=== PATIENT | male | born 1985 | race Caucasian/White ===

== ENCOUNTER → 2017-02-11 | Outpatient (CLI) | payer OTHER ==
[2017-02-11 10:55] LABS: CHCM 33.8; HCT 43.4 % (39.0-53.0); HDW 2.51; HGB 14.9 gm/dL (13.0-17.5); MCH 29.6 pg (25.0-35.0); MCHC 34.4 g/dL (31.0-37.0); Mean Platelet Volume 7.1; RBC 5.04 m/uL (4.30-5.90); RDW 13.1 % (11.5-15.5); WBC 8.5 k/uL (3.8-10.6)
[2017-02-11 11:18] LABS: ALT 109 U/L (21-72); AST 53 U/L (17-59); Alkaline Phosphatase 76 U/L (38-126); Anion Gap 11 mmol/L; Blood Urea Nitrogen 12 mg/dL (9-20); Calcium 9.6 mg/dL (8.4-10.2); Carbon Dioxide 26 mmol/L (22-30); Chloride 107 mmol/L (98-107); Cholesterol 194 mg/dL (<200); Glucose 99 mg/dL (74-99); HDL Cholesterol 36 mg/dL (40-60); Non-African American GFR(MDRD) >60 (>60 ml/min/1.73 sqM); Sodium 144 mmol/L (137-145); Total Bilirubin 0.9 mg/dL (0.2-1.3); Total Protein 7.6 g/dL (6.3-8.2)
--- NOTE | 2017-02-11 14:21 | XR ---
EXAMINATION TYPE: XR chest 2V DATE OF EXAM: 02/11/2017 COMPARISON: Prior chest x-ray the sixth 2015 HISTORY: COPD and shortness of breath, asthma, cough TECHNIQUE: Frontal and lateral views of the chest are obtained. FINDINGS: Multiple nodular densities again noted in the left lower lobe. No pneumothorax or pleural effusion. Cardiomediastinal silhouette, pulmonary vascularity and alta are stable. IMPRESSION: Old granulomatous disease
== END | disposition home or self-care (01) ==
LOC: LABWHC1 10:15
PROVIDERS: ATTEND Internal Medicine
DX: Z00.00 Encounter for general adult medical examination without abnormal findings (principal); I11.9 Hypertensive heart disease without heart failure; J44.9 Chronic obstructive pulmonary disease, unspecified; E66.1 Drug-induced obesity; E78.2 Mixed hyperlipidemia
CPT/HCPCS: 36415; 71020; 80053; 80061; 84439; 84443; 85027

== ENCOUNTER 2017-11-23 10:33 | Emergency (ER) | payer OTHER ==
[2017-11-23 10:42] VITALS: RESP 18
[2017-11-23] MEDS ORDERED: ACETAMINOPHEN TAB 500 MG TAB PO STA (11:28)
[2017-11-23] MEDS ORDERED: IBUPROFEN 600 MG TAB PO STA (11:28)
--- NOTE | 2017-11-23 11:31 | ED ---
General Adult HPI - General Chief complaint: Upper Respiratory Infection Stated complaint: Chest Congestion Time Seen by Provider: 11/23/17 10:40 Source: patient, RN notes reviewed Mode of arrival: ambulatory Limitations: no limitations - History of Present Illness Initial comments: This is a 32-year-old male who presents emergency Department complaining of a 2 day history of coughing up sputum and having body aches. Patient states she did get a flu shot this year. Patient states he is not a smoker. Patient states the symptoms don't seem to be subsiding. Patient denies taking any medicine for his aches or fever. Patient denies any chest pain difficulty breathing or shortness of breath. Patient denies any headache patient denies numbness weakness. Patient denies lightheadedness dizziness or near syncopal episode. - Related Data Home Medications Medication Instructions Recorded Confirmed Albuterol Inhaler [Ventolin 2 puff INHALATION RT-Q4H PRN 11/18/13 11/23/17 Inhaler] Enalapril [Vasotec] 5 mg PO DAILY 11/18/13 11/23/17 ALPRAZolam [Xanax] 0.5 mg PO BID PRN 02/24/14 11/23/17 Ranitidine HCl [Zantac] 150 mg PO QAM 02/24/14 11/23/17 Atenolol [Atenolol] 25 mg PO DAILY 11/12/15 11/23/17 Ipratropium-Albuterol Nebulize 3 ml INHALATION RT-Q4H PRN 11/12/15 11/23/17 [Duoneb 0.5 mg-3 mg/3 ml Soln] Montelukast [Singulair] 10 mg PO HS 11/12/15 11/23/17 Previous Rx's Medication Instructions Recorded Ibuprofen [Motrin] 600 mg PO Q6HR PRN #40 day 02/24/14 Ketorolac [Toradol] 10 mg PO Q6HR #15 tab 12/29/15 traMADol HCl [Ultram] 50 mg PO Q6H PRN #20 tab 12/29/15 Ibuprofen [Motrin] 600 mg PO Q6HR PRN #30 tab 04/16/16 Azithromycin [Zithromax Tri-Carlos] 500 mg PO DAILY #3 tab 11/23/17 Allergies Allergy/AdvReac Type Severity Reaction Status Date / Time No Known Allergies Allergy Verified 11/23/17 10:42 Review of Systems ROS Statement: Those systems with pertinent positive or pertinent negative responses have been documented in the HPI. ROS Other: All systems not noted in ROS Statement are negative. Past Medical History Past Medical History: Asthma, Hypertension Additional Past Medical History / Comment(s): kidney stones, MIGRAINES History of Any Multi-Drug Resistant Organisms: MRSA Date of last positivie culture/infection: 11/12/15 MDRO Source:: LEFT FOOT Past Surgical History: No Surgical Hx Reported Past Psychological History: Anxiety Smoking Status: Former smoker Past Alcohol Use History: Occasional Past Drug Use History: Marijuana General Exam - General Exam Comments Initial Comments: GENERAL: Patient is well-developed and well-nourished. Patient is nontoxic and well- hydrated and is in mild distress. ENT: Neck is soft and supple. No significant lymphadenopathy is noted. Oropharynx is clear. Moist mucous membranes. Neck has full range of motion without eliciting any pain. EYES: The sclera were anicteric and conjunctiva were pink and moist. Extraocular movements were intact and pupils were equal round and reactive to light. Eyelids were unremarkable. PULMONARY: Unlabored respirations. Good breath sounds bilaterally. No audible rales rhonchi or wheezing was noted. CARDIOVASCULAR: There is a regular rate and rhythm without any murmurs gallops or rubs. ABDOMEN: Soft and nontender with normal bowel sounds. No palpable organomegaly was noted. There is no palpable pulsatile mass. SKIN: Skin is clear with no lesions or rashes and otherwise unremarkable. NEUROLOGIC: Patient is alert and oriented x3. Cranial nerves II through XII are grossly intact. Motor and sensory are also intact. Normal speech, volume and content. Symmetrical smile. MUSCULOSKELETAL: Normal extremities with adequate strength and full range of motion. LYMPHATICS: No significant lymphadenopathy is noted PSYCHIATRIC: Normal psychiatric evaluation. Normal interpersonal interactions appears functionally intact in deals appropriately with others. No signs of depression. No signs of anxiety. Limitations: no limitations Course Vital Signs 11/23/17 10:41 Temperature 100.0 F H Pulse Rate 99 Respiratory 18 Rate Blood Pressure 207/87 O2 Sat by Pulse 97 Oximetry Medical Decision Making - Medical Decision Making Chest x-ray shows a right lower lobe pneumonia. - Lab Data Lab Results 11/23/17 Range/Units 11:48 Influ A (H1N1/09) PCR Not detected (Not Detectd) Influenza A RNA (PCR) Not Detected (Not Detectd) Influenza B (RT-PCR) Not Detected (Not Detectd) Disposition Clinical Impression: Pneumonia Disposition: HOME SELF-CARE Instructions: Community Acquired Pneumonia (ED) Prescriptions: Azithromycin [Zithromax Tri-Carlos] 500 mg PO DAILY #3 tab Is patient prescribed a controlled substance at d/c from ED?: No Referrals: Nolan Umaña MD [Primary Care Provider] - 1-2 days Time of Disposition: 12:50
[2017-11-23] MEDS ORDERED: cefTRIAXone 1,000 MG VIAL (IM USE) IM ONE (11:50)
[2017-11-23] MEDS ORDERED: IBUPROFEN 600 MG TAB PO ONE (11:50)
[2017-11-23] MEDS ORDERED: ACETAMINOPHEN TAB 500 MG TAB ONE (11:50)
[2017-11-23] MEDS ORDERED: AZITHROMYCIN 500 MG TAB ONE (11:50)
--- NOTE | 2017-11-23 12:47 | XR ---
EXAMINATION TYPE: XR chest 2V DATE OF EXAM: 11/23/2017 COMPARISON: 02/11/2017 HISTORY: Chest congestion and chest pain TECHNIQUE: Frontal and lateral views of the chest are obtained. FINDINGS: There is a new right lower lobe opacity. Old granulomatous changes again seen on the left i n the perihilar region. Remainder the lungs are clear. Cardia mediastinal silhouette is within normal limits. Osseous structures are intact. IMPRESSION: New right basilar opacity suspicious for pneumonia.
[2017-11-23] MEDS ORDERED: AZITHROMYCIN 500 MG TAB PO STA (12:49)
[2017-11-23] MEDS ORDERED: cefTRIAXone 1,000 MG VIAL (IM USE) IM STA (12:49)
[2017-11-23 13:18] VITALS: BP 154/93; PULSE 83; TEMP 98.1
== END 2017-11-23 13:18 | disposition home or self-care (01) ==
LOC: EC 10:33
DX: J18.9 Pneumonia, unspecified organism (principal); J45.909 Unspecified asthma, uncomplicated; I10 Essential (primary) hypertension; F41.9 Anxiety disorder, unspecified; Z86.14 Personal history of Methicillin resistant Staphylococcus aureus infection; Z87.891 Personal history of nicotine dependence; Z79.899 Other long term (current) drug therapy
CPT/HCPCS: 71046; 87502; 87503; 99283

== ENCOUNTER 2018-03-12 12:19 | Emergency (ER) | payer OTHER ==
[2018-03-12 12:30] VITALS: BP 164/88; PULSE 69; RESP 18; TEMP 98.5
[2018-03-12] MEDS ORDERED: KETOROLAC 30 MG/ML 1 ML VIAL IM STA (12:35)
--- NOTE | 2018-03-12 12:45 | ED ---
Back Pain [facility] - General Chief Complaint: Back Pain/Injury Stated Complaint: Fall Time Seen by Provider: 03/12/18 12:29 Source: patient Limitations: no limitations - History of Present Illness Initial Comments: This a 33-year-old male with past medical history of hypertension and bilateral osteophytes of the knees who presents today for chief complaint of right knee and low back pain times one day. Patient states he was helping his in-laws move yesterday evening he was moving a deep freezer when the falguni had a flat tire, he was on the back of a pickup truck when the freezer began to tip backwards he fell off the truck landing on his right knee and then right side and the freezer hit him on the right side. Patient really noticed some tenderness in the right knee and felt like he pulled a muscle in the right side his back however he was able to ambulate and continued to move. This morning patient woke up with significant pain in his right knee and stiffness. Patient states that his son had to help him out of bed due to the right knee pain, he is able to fully weight-bear and ambulate. Patient stated that the right-sided back pain felt more of a muscle strain. He denies any loss of bowel bladder control, urinary retention, numbness, tingling, paresthesia of the lower extremities or loss of sensation of the lower extremities, coolness or pallor to the extremities, chest pain, shortness of breath. Patient denies hitting his head or neck. He denies loss of consciousness or injury to any other extremity. Patient denies any abrasions or lacerations. Patient states that he is feeling good overall aside from the right knee pain. Remainder of ROS negative. Upon arrival patient's vital signs stable. - Related Data Home Medications Medication Instructions Recorded Confirmed Albuterol Inhaler [Ventolin 2 puff INHALATION RT-Q4H PRN 11/18/13 11/23/17 Inhaler] Enalapril [Vasotec] 5 mg PO DAILY 11/18/13 11/23/17 ALPRAZolam [Xanax] 0.5 mg PO BID PRN 02/24/14 11/23/17 Ranitidine HCl [Zantac] 150 mg PO QAM 02/24/14 11/23/17 Atenolol 25 mg PO DAILY 11/12/15 11/23/17 Ipratropium-Albuterol Nebulize 3 ml INHALATION RT-Q4H PRN 11/12/15 11/23/17 [Duoneb 0.5 mg-3 mg/3 ml Soln] Montelukast [Singulair] 10 mg PO HS 11/12/15 11/23/17 Previous Rx's Medication Instructions Recorded Ibuprofen [Motrin] 600 mg PO Q6HR PRN #40 day 02/24/14 Ketorolac [Toradol] 10 mg PO Q6HR #15 tab 12/29/15 traMADol HCl [Ultram] 50 mg PO Q6H PRN #20 tab 12/29/15 Ibuprofen [Motrin] 600 mg PO Q6HR PRN #30 tab 04/16/16 Azithromycin [Zithromax Tri-Carlos] 500 mg PO DAILY #3 tab 11/23/17 Ibuprofen [Motrin] 800 mg PO Q8H PRN 7 Days #21 tab 03/12/18 Allergies Allergy/AdvReac Type Severity Reaction Status Date / Time No Known Allergies Allergy Verified 03/12/18 12:30 Review of Systems ROS Statement: Those systems with pertinent positive or pertinent negative responses have been documented in the HPI. ROS Other: All systems not noted in ROS Statement are negative. Constitutional: Denies: fever, chills, night sweats Eyes: Denies: vision change ENT: Denies: ear pain, throat pain Respiratory: Denies: cough, dyspnea, wheezes, hemoptysis, stridor Cardiovascular: Denies: chest pain, palpitations, dyspnea on exertion, edema Gastrointestinal: Denies: abdominal pain, nausea, vomiting, diarrhea, constipation, hematemesis, melena, hematochezia Genitourinary: Denies: urgency, dysuria, frequency, hematuria Musculoskeletal: Reports: back pain, arthralgia. Denies: joint swelling Skin: Denies: rash, lesions Neurological: Denies: headache, weakness, numbness, paresthesias, confusion Past Medical History Past Medical History: Asthma, Hypertension Additional Past Medical History / Comment(s): kidney stones, MIGRAINES History of Any Multi-Drug Resistant Organisms: MRSA Date of last positivie culture/infection: 11/12/15 MDRO Source:: LEFT FOOT Past Surgical History: No Surgical Hx Reported Past Psychological History: Anxiety Smoking Status: Former smoker Past Alcohol Use History: Occasional Past Drug Use History: Marijuana General Exam - General Exam Comments Initial Comments: General: The patient is awake and alert, in no distress, and does not appear acutely ill. Eye: Pupils are equal, extra-ocular movements are intact. No nystagmus. There is normal conjunctiva bilaterally. No signs of icterus. Ears, nose, mouth and throat: There are moist mucous membranes and no oral lesions. Neck: The neck is supple, there is no tenderness or JVD. Cardiovascular: There is a regular rate and rhythm. No murmur, rub or gallop is appreciated. Respiratory: Lungs are clear to auscultation, respirations are non-labored, breath sounds are equal. No wheezes, stridor, rales, or rhonchi. Musculoskeletal: Upon inspection of the knees bilaterally, they appear equal no signs of abrasions, lacerations or soft tissue swelling of the knees. Patient is able to fully range ROM with flexion and extension at the knees bilaterally, however patient complains of pain in the right knee. Tenderness to patient over the medial aspect of the right knee. Strength 5/5 of the hips, knees and ankles b/l. Extensor mechanism intact b/l. Sensation intact of the LE equally b/ l. DP and radial pulses equal bilaterally 2+. Full ROM at the lumbar spine. Mild tenderness to palpation midline, greater tenderness to the right paravertebral muscles. No ecchymosis, abrasions or lesions. +2 DTR of the LE equally b/l. Full ROM at C-spine no midline or paravertebral tenderness to palpation. Neurological: A&O x 3. CN II-XII intact, There are no obvious motor or sensory deficits. Coordination appears grossly intact. Speech is normal. Skin: Skin is warm and dry and no rashes or lesions are noted. Psychiatric: Cooperative, appropriate mood & affect, normal judgment. Limitations: no limitations Course Vital Signs 03/12/18 12:27 Temperature 98.5 F Pulse Rate 69 Respiratory 18 Rate Blood Pressure 164/88 O2 Sat by Pulse 96 Oximetry Medical Decision Making - Medical Decision Making Pt given 30mg IM of toradol. XR knee revealed OA no acute fracture dislocation. Lumbar XR revealed Grade spondylothesis of L5-S1, could be chronic. Pt neurovascularly intact, no signs/symptoms of cauda equina. Pt right knee FAHAD bandaged. Pt given orthopedic f/u in the next 2-3 days if symptoms persist. Pt has scheduled appointment Thursday with his PCP for which he was instructed to f/ u on this date. Pt agreed with plan. Case discussed with Dr. Gerard who agreed with impression and plan. Pt discharged in stable condition. Disposition Clinical Impression: Pain of right knee after injury, Low back strain, Spondylolisthesis, grade 1 Disposition: HOME SELF-CARE Condition: Good Instructions: Knee Sprain (ED), Low Back Strain (ED) Additional Instructions: Please use medication as discussed. Please follow-up with family doctor on Thursday as scheduled. If back pain persists >1 week please follow-up with orthopedic surgery for consultation. Please return to emergency room if the symptoms increase or worsen or for any other concerns, as discussed. Prescriptions: Ibuprofen [Motrin] 800 mg PO Q8H PRN 7 Days #21 tab PRN Reason: Pain Is patient prescribed a controlled substance at d/c from ED?: No Referrals: Nolan Umaña MD [Primary Care Provider] - 03/15/18 Dariusz Mora MD [Medical Doctor] - 1-2 days Time of Disposition: 12:53
--- NOTE | 2018-03-12 13:01 | XR ---
EXAMINATION TYPE: XR knee complete RT DATE OF EXAM: 03/12/2018 CLINICAL HISTORY: Pain after fall injury. TECHNIQUE: Three views of the right knee are obtained. COMPARISON: Right knee x-ray December 15, 2011. FINDINGS: There is no acute fracture/dislocation evident in right knee. There is mild to moderate bakari int space loss with mild spurring patellofemoral compartment progressed from 2012 study. There is mi ld narrowing medial tibiofemoral compartment redemonstrated. 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 Soft tissue density suprapat ellar region suspicious for small to moderate joint effusion is redemonstrated. IMPRESSION: There is no acute fracture or dislocation in the right knee.
--- NOTE | 2018-03-12 13:03 | XR ---
EXAM TYPE: LUMBAR SPINE X RAY SERIES COMPARISON: NONE HISTORY: Low back pain TECHNIQUE: 3 views are submitted. FINDINGS: Alignment is anatomic. The pedicles are intact. The transverse processes are intact. Hypertrophic changes seen at L4-5 and L5-S1 suggestion of a grade 1 spondylolisthesis of L5 IMPRESSION: 1. Grade 1 spondylolisthesis of L5 on S1. 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
== END 2018-03-12 13:19 | disposition home or self-care (01) ==
LOC: EC 12:19
DX: S39.012A Strain of muscle, fascia and tendon of lower back, initial encounter (principal); M43.17 Spondylolisthesis, lumbosacral region; M25.561 Pain in right knee; M17.11 Unilateral primary osteoarthritis, right knee; J45.909 Unspecified asthma, uncomplicated; I10 Essential (primary) hypertension; F41.9 Anxiety disorder, unspecified; Z87.891 Personal history of nicotine dependence; Z79.899 Other long term (current) drug therapy; Z86.14 Personal history of Methicillin resistant Staphylococcus aureus infection; W20.8XXA Other cause of strike by thrown, projected or falling object, initial encounter; Y93.89 Activity, other specified
CPT/HCPCS: 72100; 73562; 99283; 96372; J1885

== ENCOUNTER 2018-05-27 20:47 | Emergency (ER) | payer OTHER ==
[2018-05-27 21:15] VITALS: BP 154/89; PULSE 97; RESP 18; TEMP 98.4
--- NOTE | 2018-05-27 21:52 | ED ---
General Adult HPI - General Source: patient, RN notes reviewed, old records reviewed Mode of arrival: ambulatory Limitations: no limitations <Fam Scruggs - Last Filed: 05/27/18 23:55> <Maegan Orantes - Last Filed: 05/31/18 03:27> - General Chief complaint: Extremity Problem,Nontraumatic Stated complaint: Toe pain - History of Present Illness Initial comments: 33-year-old male patient presents to ED with approximately 5 days of left great toe pain. Patient has history of ingrown toenails in that toe. Patient states that this feels similar to how to feel in the past. Patient has a routine which she cut his toenail and angulated pattern which relieves his symptoms. Patient did this approximately 1 week ago. Patient says he is able to express some purulent fluid out of his left great toe nail earlier today. Patient denies fever chills, nausea vomiting diarrhea, shortness of breath, chest pain, abdominal pain, any other symptoms. Systemic: Pt denies fatigue, myalgia, fever/chills, rash. Pt denies weakness, night sweats, weight loss. Neuro: Pt denies headache, visual disturbances, syncope or pre-syncope. HEENT: Pt denies ocular discharge or irritation, otalgia, rhinorrhea, pharyngitis or notable lymphadenopathy. Cardiopulmonary: Pt denies chest pain, SOB, heart palpitations, dyspnea on exertion. Abdominal/GI: Pt denies abdominal pain, n/v/d. : Pt denies dysuria, burning w/ urination, frequency/urgency. Denies new onset urinary or bowel incontinence. MSK: Pt denies myalgia, loss of strength or function in extremities. (Fam Scruggs) - Related Data Home Medications Medication Instructions Recorded Confirmed Albuterol Inhaler [Ventolin 2 puff INHALATION RT-Q4H PRN 11/18/13 11/23/17 Inhaler] Enalapril [Vasotec] 5 mg PO DAILY 11/18/13 11/23/17 ALPRAZolam [Xanax] 0.5 mg PO BID PRN 02/24/14 11/23/17 Ranitidine HCl [Zantac] 150 mg PO QAM 02/24/14 11/23/17 Atenolol 25 mg PO DAILY 11/12/15 11/23/17 Ipratropium-Albuterol Nebulize 3 ml INHALATION RT-Q4H PRN 11/12/15 11/23/17 [Duoneb 0.5 mg-3 mg/3 ml Soln] Montelukast [Singulair] 10 mg PO HS 11/12/15 11/23/17 Previous Rx's Medication Instructions Recorded Ibuprofen [Motrin] 600 mg PO Q6HR PRN #40 day 02/24/14 Ketorolac [Toradol] 10 mg PO Q6HR #15 tab 12/29/15 traMADol HCl [Ultram] 50 mg PO Q6H PRN #20 tab 12/29/15 Ibuprofen [Motrin] 600 mg PO Q6HR PRN #30 tab 04/16/16 Azithromycin [Zithromax Tri-Carlos] 500 mg PO DAILY #3 tab 11/23/17 Ibuprofen [Motrin] 800 mg PO Q8H PRN 7 Days #21 tab 03/12/18 Sulfamethox-Tmp 800-160Mg [Bactrim 1 tab PO Q12HR 7 Days #14 tab 05/27/18 DS 800-160 mg] Allergies Allergy/AdvReac Type Severity Reaction Status Date / Time No Known Allergies Allergy Verified 05/27/18 21:15 Review of Systems ROS Other: All systems not noted in ROS Statement are negative. <Fam Scruggs - Last Filed: 05/27/18 23:55> ROS Other: All systems not noted in ROS Statement are negative. <Maegan Orantes - Last Filed: 05/31/18 03:27> ROS Statement: Those systems with pertinent positive or pertinent negative responses have been documented in the HPI. Past Medical History Past Medical History: Asthma, Hypertension Additional Past Medical History / Comment(s): kidney stones, MIGRAINES History of Any Multi-Drug Resistant Organisms: MRSA Date of last positivie culture/infection: 11/12/15 MDRO Source:: LEFT FOOT Past Surgical History: No Surgical Hx Reported Past Psychological History: Anxiety Smoking Status: Former smoker Past Alcohol Use History: Occasional Past Drug Use History: Marijuana <Fam Scruggs - Last Filed: 05/27/18 23:55> General Exam Limitations: no limitations <Fam Scruggs - Last Filed: 05/27/18 23:55> <Maegan Orantes P - Last Filed: 05/31/18 03:27> - General Exam Comments Initial Comments: Constitutional: NAD, AOX3, Pt has pleasant affect. HEENT: NC/AT, trachea midline, neck supple, no lymphadenopathy. Posterior pharynx non erythematous, without exudates. External ears appear normal, without discharge. Mucous membranes moist. Eyes PERRLA, EOM intact. There is no scleral icterus. No pallor noted. Cardiopulmonary: RRR, no murmurs, rubs or gallops, no JVD noted. Lungs CTAB in anterior and posterior tomas. No peripheral edema. Abdominal exam: Abdomen soft and non-distended. Abdomen non-tender to palpation in all 4 quadrants. Bowel sounds active in LLQ. No hepatosplenomegaly. Neuro: CN II-XII grossly intact. MSK: Left great toe mildly erythematous at lateral nailbed. Ingrown nail noted at lateral border. There are no areas of fluctuance. No discharge noted. No drainage. Patient has full range of motion. Patient lateral ingrown nail removed, patient had procedure well, neurovascularly intact before and after procedure. Capillary refill less than 2 seconds before and after procedure. No purulent fluid was expressed strength procedure. (Fam Scruggs) Vital Signs 05/27/18 21:12 Temperature 98.4 F Pulse Rate 97 Respiratory 18 Rate Blood Pressure 154/89 O2 Sat by Pulse 96 Oximetry Medical Decision Making <Fam Scruggs - Last Filed: 05/27/18 23:55> <Maegan Orantes - Last Filed: 05/31/18 03:27> - Medical Decision Making 33-year-old male patient with long history of recurrent toenails, presents to ED with complaint of ingrown toenail and pain. Mild located on his left great toe. Physical exam displayed mild erythema at distal left great toe. Physical exam was otherwise benign, systems examined including neuro, cardiovascular, pulmonary, abdominal, MSK. Plain film of left foot do not display any acute process. Lateral aspects of toenail noted ingrown. Ingrown nail removed, approximately 1 cm above nailbed. Patient neurovascularly intact before and after procedure. Patient I procedure well. Patient given a prescription of Bactrim. Patient given a referral for range mounter. Patient to follow with PCP in 1-2 days. Patient to return to ED if any new signs and symptoms develop including, erythema, discharge from toe, increased pain from toe, fever/chills, nausea vomiting diarrhea, any other new signs symptoms. Case discussed with Dr. Orantes. (Fam Scruggs) I was available for consultation in the emergency department. The history and physical exam were done by the midlevel provider. I was consulted for this patient's care. I reviewed the case with the midlevel provider and based on their presentation of the patient, I agree with the assessment, medical decision making and plan of care as documented. (Maegan Orantes) Disposition Is patient prescribed a controlled substance at d/c from ED?: No Time of Disposition: 23:46 <Fam Scruggs - Last Filed: 05/27/18 23:55> <Maegan Orantes - Last Filed: 05/31/18 03:27> Clinical Impression: Ingrown left big toenail Disposition: HOME SELF-CARE Condition: Good Instructions: Ingrown Nail (ED) Additional Instructions: Patient to adhere to previously discussed treatment plan and will take medication(s) as directed. Patient to follow up with PCP in 1-2 days. Patient to return to ED if symptoms do not improve. Prescriptions: Sulfamethox-Tmp 800-160Mg [Bactrim DS 800-160 mg] 1 tab PO Q12HR 7 Days #14 tab Referrals: Nolan Umaña MD [Primary Care Provider] - 1-2 days Favian Stock DPM [STAFF PHYSICIAN] - 1-2 days
--- NOTE | 2018-05-27 22:11 | XR ---
EXAMINATION TYPE: XR foot complete LT DATE OF EXAM: 05/27/2018 COMPARISON: NONE HISTORY: Toe pain TECHNIQUE: 3 views FINDINGS: There is a plantar calcaneal spur. Metatarsals are intact. I see no fracture nor dislocatio n. There are no erosions. IMPRESSION: Calcaneal spurring. The big toe shows no evidence of a fracture.
[2018-05-27] MEDS ORDERED: LIDOCAINE 1% INJ 10MG/ML (20 ML MDV) SQ STA (22:37)
--- NOTE | 2018-05-28 07:10 | CDI ---
Documentation Clarification OP Dear Fam HONG, PAC As per documentation missing ingrown nail removal procedure. Please add the addendum to code the procedure. Thank you, Carina Ibrahim Trading Manager If you have any question, Please contact consulting services manager at [phone] [facility]
--- NOTE | 2018-05-29 12:24 | ED ---
Medical Decision Making - Medical Decision Making I was available for consultation in the emergency department. The history and physical exam were done by the midlevel provider. I was consulted for this patient's care. I reviewed the case with the midlevel provider and based on their presentation of the patient, I agree with the assessment, medical decision making and plan of care as documented. (Maegan Orantes) Disposition Is patient prescribed a controlled substance at d/c from ED?: No Clinical Impression: Ingrown left big toenail Disposition: HOME SELF-CARE Condition: Good Instructions: Ingrown Nail (ED) Additional Instructions: Patient to adhere to previously discussed treatment plan and will take medication(s) as directed. Patient to follow up with PCP in 1-2 days. Patient to return to ED if symptoms do not improve. Prescriptions: Sulfamethox-Tmp 800-160Mg [Bactrim DS 800-160 mg] 1 tab PO Q12HR 7 Days #14 tab Referrals: Nolan Umaña MD [Primary Care Provider] - 1-2 days Favian Stock DPM [STAFF PHYSICIAN] - 1-2 days Procedures - Procedures Initial comment: nail removal, digital block performed on great toe of L foot w/ 1% lidocaine, 4 mL's. Pt tolerated procedure well, no complications. Area loosely bandaged with bacitracin. Pt to f/u with podiatricist. (Fam Scruggs)
== END 2018-05-28 00:07 | disposition home or self-care (01) ==
LOC: EC 20:47
DX: L60.0 Ingrowing nail (principal); J45.909 Unspecified asthma, uncomplicated; I10 Essential (primary) hypertension; F41.9 Anxiety disorder, unspecified; Z87.891 Personal history of nicotine dependence; Z86.14 Personal history of Methicillin resistant Staphylococcus aureus infection; Z79.899 Other long term (current) drug therapy
CPT/HCPCS: 73630; 99284; 11730; J2001

== ENCOUNTER 2019-01-01 10:21 | Emergency (ER) | payer OTHER ==
[2019-01-01 10:41] VITALS: BP 136/75; PULSE 75; RESP 18; TEMP 98.2
--- NOTE | 2019-01-01 10:53 | ED ---
Lower Extremity Injury HPI - General Chief Complaint: Extremity Injury, Lower Stated Complaint: RT ANKLE INJURY Time Seen by Provider: 01/01/19 10:42 Source: patient, RN notes reviewed Mode of arrival: ambulatory Limitations: no limitations - History of Present Illness Initial Comments: This a 33-year-old male presents emergency Department chief complaint right ankle pain. 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 Patient states that he was along and rocks states that he went to turn around and fell down a 2-3 foot drop. Patient rolled his ankle and foot. Patient complains of increased pain and swelling. Patient states his pain with movement better at rest no pain above his right ankle denies any head injury no loss conscious. - Related Data Home Medications Medication Instructions Recorded Confirmed Albuterol Inhaler [Ventolin 2 puff INHALATION RT-Q4H PRN 11/18/13 01/01/19 Inhaler] Enalapril [Vasotec] 5 mg PO DAILY 11/18/13 01/01/19 ALPRAZolam [Xanax] 0.5 mg PO BID PRN 02/24/14 01/01/19 Atenolol 25 mg PO DAILY 11/12/15 01/01/19 Ipratropium-Albuterol Nebulize 3 ml INHALATION RT-Q4H PRN 11/12/15 01/01/19 [Duoneb 0.5 mg-3 mg/3 ml Soln] Montelukast [Singulair] 10 mg PO DAILY 11/12/15 01/01/19 Omeprazole 20 mg PO DAILY 01/01/19 01/01/19 Previous Rx's Medication Instructions Recorded traMADol HCl [Ultram] 50 mg PO Q6H PRN #20 tab 12/29/15 Ibuprofen [Motrin] 600 mg PO Q6HR PRN #30 tab 04/16/16 Ibuprofen [Motrin] 600 mg PO Q8HR PRN #30 tab 01/01/19 Allergies Allergy/AdvReac Type Severity Reaction Status Date / Time No Known Allergies Allergy Verified 01/01/19 11:26 Review of Systems ROS Statement: Those systems with pertinent positive or pertinent negative responses have been documented in the HPI. ROS Other: All systems not noted in ROS Statement are negative. Past Medical History Past Medical History: Asthma, Hypertension Additional Past Medical History / Comment(s): kidney stones, MIGRAINES History of Any Multi-Drug Resistant Organisms: MRSA Date of last positivie culture/infection: 11/12/15 MDRO Source:: LEFT FOOT Past Surgical History: No Surgical Hx Reported Past Psychological History: Anxiety Smoking Status: Former smoker Past Alcohol Use History: Occasional Past Drug Use History: Marijuana General Exam Limitations: no limitations General appearance: alert, in no apparent distress Head exam: Present: atraumatic, normocephalic, normal inspection Respiratory exam: Present: normal lung sounds bilaterally. Absent: respiratory distress, wheezes, rales, rhonchi, stridor Cardiovascular Exam: Present: regular rate, normal rhythm, normal heart sounds. Absent: systolic murmur, diastolic murmur, rubs, gallop, clicks Extremities exam: Present: other (Right ankle there is moderate swelling diffusely, tenderness the medial and lateral malleoli region, no obvious deformity, mild right lateral foot pain with palpation Refill less than 2 sec onds equal pedal pulses no proximal tib-fib tenderness) Skin exam: Present: warm, dry, intact, normal color. Absent: rash Course Vital Signs 01/01/19 10:38 Temperature 98.2 F Pulse Rate 75 Respiratory 18 Rate Blood Pressure 136/75 O2 Sat by Pulse 95 Oximetry Medical Decision Making - Medical Decision Making 33-year-old female presents emergency department for right foot and ankle pain x-rays reviewed no acute fracture. Patient is right ankle sprain will be placed in a stirrup Aircast and will be discharged. Disposition Clinical Impression: Right ankle sprain, Foot sprain Disposition: HOME SELF-CARE Condition: Stable Instructions (If sedation given, give patient instructions): Ankle Sprain (ED) Additional Instructions: Please return to the Emergency Department if symptoms worsen or any other concerns. Prescriptions: Ibuprofen [Motrin] 600 mg PO Q8HR PRN #30 tab PRN Reason: Pain Is patient prescribed a controlled substance at d/c from ED?: No Referrals: Nolan Umaña MD [Primary Care Provider] - 1-2 days Fam Dean MD [STAFF PHYSICIAN] - 1-2 days Time of Disposition: 11:36
--- NOTE | 2019-01-01 11:11 | XR ---
EXAMINATION TYPE: XR ankle complete RT DATE OF EXAM: 01/01/2019 COMPARISON: 05/27/2018 HISTORY: Pain FINDINGS: Three views of the ankle demonstrate the ankle mortise to be intact and symmetric. The joint spaces are preserved. The osseous structures are intact. Diffuse soft tissue edema. 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 Calcaneal spurs are noted. IMPRESSION: 1. No definite acute fracture or dislocation, if symptoms persist follow-up study in 7 to 10 days wou ld be suggested. 2. Diffuse soft tissue edema.
--- NOTE | 2019-01-01 11:12 | XR ---
EXAMINATION TYPE: XR foot complete RT DATE OF EXAM: 01/01/2019 COMPARISON: 05/27/2018 HISTORY: Pain TECHNIQUE: Three views are submitted. FINDINGS: The osseous structures are intact. There is no acute fracture or dislocation. Joint spaces are p reserved. Calcaneal spurs noted. IMPRESSION: 1. No acute fracture or dislocation. If symptoms persist, follow-up exam in 7 to 10 days could be ob tained.
== END 2019-01-01 11:50 | disposition home or self-care (01) ==
LOC: EC 10:21
DX: S93.401A Sprain of unspecified ligament of right ankle, initial encounter (principal); S93.601A Unspecified sprain of right foot, initial encounter; J45.909 Unspecified asthma, uncomplicated; I10 Essential (primary) hypertension; Z87.891 Personal history of nicotine dependence; Z79.899 Other long term (current) drug therapy; Z86.14 Personal history of Methicillin resistant Staphylococcus aureus infection; W01.0XXA Fall on same level from slipping, tripping and stumbling without subsequent striking against object, initial encounter; Y93.89 Activity, other specified; Y92.89 Other specified places as the place of occurrence of the external cause
CPT/HCPCS: 73610; 73630; 99283; L4350

== ENCOUNTER → 2019-03-25 | Outpatient (CLI) | payer OTHER ==
[2019-03-25 08:38] LABS: Basophils # (A) 0.1 k/uL (0-0.2); Basophils % (A) 1 %; Eosinophils # (A) 0.3 k/uL (0-0.7); Eosinophils % (A) 2 %; HCT 48.3 % (39.0-53.0); HGB 16.6 gm/dL (13.0-17.5); Lymphocytes % (A) 29 %; MCH 29.4 pg (25.0-35.0); MCHC 34.4 g/dL (31.0-37.0); MCV 85.4 fL (80.0-100.0); Mean Platelet Volume 7.1; Monocytes # (A) 0.9 k/uL (0-1.0); Monocytes % (A) 7 %; Neutrophils # (A) 8.1 k/uL (1.3-7.7); Neutrophils % (A) 58 %; Platelet Count 314 k/uL (150-450); RBC 5.66 m/uL (4.30-5.90); RDW 13.6 % (11.5-15.5); WBC 13.8 k/uL (3.8-10.6)
[2019-03-25 09:41] LABS: Erythrocyte Sedimentation Rate 8 mm/hr (0-15)
[2019-03-25 16:33] LABS: African American GFR (CKD) 127.8 (60.0-200.0); Albumin 4.6 g/dL (3.80-4.90); Albumin/Globulin Ratio 1.77 (1.60-3.17); Anion Gap 9.2 mmol/L (4.00-12.00); BUN/Creat Ratio 18.89 Ratio (12.00-20.00); C Reactive Protein 1.3 mg/dL (0.0-0.8); Calcium 9.8 mg/dL (8.7-10.3); Carbon Dioxide 23.8 mmol/L (21.6-31.8); Chol/HDL Ratio 4.95; Globulin 2.6 g/dL (1.6-3.3); LDL Cholesterol,Calculated 119.8 mg/dL (0.0-131.0); Potassium 4.1 mmol/L (3.5-5.5); Total Bilirubin 1.1 mg/dL (0.3-1.2); Total Protein 7.2 g/dL (6.2-8.2); VLDL Calculation 34.2 mg/dL (5.00-40.00)
[2019-03-25 16:41] LABS: T4, Free (Free Thyroxine) 1.2 ng/dL (0.80-1.80)
[2019-03-25 18:29] LABS: Hemoglobin A1C 5.3 % (4.0-6.0)
== END | disposition home or self-care (01) ==
LOC: LABWHC1 08:12
PROVIDERS: ATTEND Internal Medicine
DX: Z00.00 Encounter for general adult medical examination without abnormal findings (principal); D64.9 Anemia, unspecified; J44.9 Chronic obstructive pulmonary disease, unspecified; I10 Essential (primary) hypertension; E78.5 Hyperlipidemia, unspecified; E03.9 Hypothyroidism, unspecified; E66.9 Obesity, unspecified; E55.9 Vitamin D deficiency, unspecified
CPT/HCPCS: 36415; 80053; 80061; 82306; 82550; 83036; 84439; 84443; 85025; 85652; 86140

== ENCOUNTER 2019-03-27 17:39 | Emergency (ER) | payer OTHER ==
[2019-03-27 18:12] VITALS: TEMP 98.1
[2019-03-27] MEDS ORDERED: KETOROLAC 30 MG/ML 1 ML VIAL IVP STA (19:28)
[2019-03-27] MEDS ORDERED: methylPREDNISolone SOD SUCCI 125 MG/2 ML VIAL IV STA (19:29)
[2019-03-27] MEDS ORDERED: SODIUM CHLORIDE 0.9% 1,000 ML IV ONE (19:30)
[2019-03-27 19:48] LABS: Basophils # (A) 0.1 k/uL (0-0.2); Basophils % (A) 1 %; Eosinophils # (A) 0.3 k/uL (0-0.7); Eosinophils % (A) 3 %; HGB 15.4 gm/dL (13.0-17.5); Lymphocytes # (A) 3.6 k/uL (1.0-4.8); Lymphocytes % (A) 28 %; MCH 29.1 pg (25.0-35.0); MCV 83.2 fL (80.0-100.0); Mean Platelet Volume 6.1; Monocytes # (A) 1.1 k/uL (0-1.0); Monocytes % (A) 9 %; Neutrophils # (A) 7.3 k/uL (1.3-7.7); Neutrophils % (A) 57 %; Platelet Count 293 k/uL (150-450); RBC 5.29 m/uL (4.30-5.90); RDW 13.3 % (11.5-15.5); WBC 12.9 k/uL (3.8-10.6)
[2019-03-27 20:00] LABS: ALT 66 U/L (21-72); AST 35 U/L (17-59); African American GFR (CKD) >90 (>60 ml/min/1.73 sqM); Albumin 4.3 g/dL (3.5-5.0); Alkaline Phosphatase 76 U/L (38-126); Anion Gap 11 mmol/L; Blood Urea Nitrogen 17 mg/dL (9-20); Calcium 9.7 mg/dL (8.4-10.2); Carbon Dioxide 24 mmol/L (22-30); Chloride 107 mmol/L (98-107); Glucose 97 mg/dL (74-99); Sodium 142 mmol/L (137-145); Total Bilirubin 0.5 mg/dL (0.2-1.3); Total Protein 7.8 g/dL (6.3-8.2)
--- NOTE | 2019-03-27 20:53 | XR ---
EXAMINATION TYPE: XR chest 2V DATE OF EXAM: 03/27/2019 COMPARISON: 11/23/2017 HISTORY: Cough TECHNIQUE: Frontal and lateral views of the chest are obtained. FINDINGS: Heart and mediastinum are normal. There are multiple calcified granulomata in the left low er lobe. There are no hilar masses. There is no pleural effusion. IMPRESSION: Old granulomatous disease. No acute lung disease. There is clearing of right lower lobe pneumonia compared to old exam. Normal heart.
[2019-03-27 21:37] VITALS: PULSE 80; RESP 18
--- NOTE | 2019-03-27 22:34 | ED ---
URI HPI - General Chief Complaint: Upper Respiratory Infection Stated Complaint: SORE THROAT Time Seen by Provider: 03/27/19 18:55 Source: patient Mode of arrival: ambulatory Limitations: no limitations - History of Present Illness Initial Comments: 34-year-old male patient presents to the emergency department today for evaluation of cough, chest tightness, and sore throat. Patient states his been sick for a little over a week with symptoms. States sore throat developed 2-3 days ago. Patient denies any known fevers, states he has been chilled. Patient states that he has been Augmentin for the last 6 days. States that he feels worse today. States he feels unwell and fatigued. He denies any nausea or vomiting. Denies any chest pain. Denies any rash. Patient denies any recent abdominal pain, diarrhea, constipation, back pain, numbness, tingling, dizziness, weakness, hematuria, dysuria, urinary urgency, urinary frequency, headache, visual changes, or any other complaints. - Related Data Home Medications Medication Instructions Recorded Confirmed Albuterol Inhaler [Ventolin 2 puff INHALATION RT-Q4H PRN 11/18/13 03/27/19 Inhaler] Enalapril [Vasotec] 5 mg PO DAILY 11/18/13 03/27/19 ALPRAZolam [Xanax] 0.5 mg PO BID PRN 02/24/14 03/27/19 Atenolol 25 mg PO DAILY 11/12/15 03/27/19 Ipratropium-Albuterol Nebulize 3 ml INHALATION RT-Q4H PRN 11/12/15 03/27/19 [Duoneb 0.5 mg-3 mg/3 ml Soln] Montelukast [Singulair] 10 mg PO DAILY 11/12/15 03/27/19 Omeprazole 20 mg PO DAILY 01/01/19 03/27/19 Amoxic-Pot Clav 875-125Mg 1 tab PO BID 03/27/19 03/27/19 [Augmentin 875-125] hydrALAZINE HCL [Apresoline] 25 mg PO TID 03/27/19 03/27/19 Previous Rx's Medication Instructions Recorded traMADol HCl [Ultram] 50 mg PO Q6H PRN #20 tab 12/29/15 Ibuprofen [Motrin] 600 mg PO Q8HR PRN #30 tab 01/01/19 predniSONE 50 mg PO DAILY #5 tablet 03/27/19 Allergies Allergy/AdvReac Type Severity Reaction Status Date / Time No Known Allergies Allergy Verified 03/27/19 19:02 Review of Systems ROS Statement: Those systems with pertinent positive or pertinent negative responses have been documented in the HPI. ROS Other: All systems not noted in ROS Statement are negative. Past Medical History Past Medical History: Asthma, Hypertension Additional Past Medical History / Comment(s): kidney stones, MIGRAINES History of Any Multi-Drug Resistant Organisms: MRSA Date of last positivie culture/infection: 11/12/15 MDRO Source:: LEFT FOOT Past Surgical History: No Surgical Hx Reported Past Psychological History: Anxiety Smoking Status: Former smoker Past Alcohol Use History: Occasional Past Drug Use History: Marijuana General Exam Limitations: no limitations General appearance: alert, in no apparent distress, other (This is a well- developed, well-nourished adult male patient in no acute distress. Vital signs upon presentation are temperature 98.1F, pulse 102, respirations 20, blood pressure 141/93, pulse ox 96% on room air.) Eye exam: Present: normal appearance, PERRL, EOMI. Absent: scleral icterus, conjunctival injection, periorbital swelling ENT exam: Present: mucous membranes moist. Absent: normal exam, normal oropharynx (Patient has ulcerative lesion on the right palatoglossal arch with surrounding erythema. Tonsils are symmetric in size. There is no exudate. No uvular swelling.) Neck exam: Present: normal inspection. Absent: tenderness, meningismus, lymphadenopathy Respiratory exam: Present: normal lung sounds bilaterally. Absent: respiratory distress, wheezes, rales, rhonchi, stridor Cardiovascular Exam: Present: regular rate, normal rhythm, normal heart sounds. Absent: systolic murmur, diastolic murmur, rubs, gallop, clicks GI/Abdominal exam: Present: soft, normal bowel sounds. Absent: distended, tenderness, guarding, rebound, rigid Neurological exam: Present: alert, oriented X3, CN II-XII intact Psychiatric exam: Present: normal affect, normal mood Skin exam: Present: warm, dry, intact, normal color. Absent: rash Course Vital Signs 03/27/19 03/27/19 03/27/19 18:07 20:10 21:36 Temperature 98.1 F 98.1 F Pulse Rate 102 H 80 Respiratory 20 18 18 Rate Blood Pressure 141/93 170/97 O2 Sat by Pulse 96 96 Oximetry 03/27/19 23:04 Temperature 98.1 F Pulse Rate 80 Respiratory 18 Rate Blood Pressure 168/92 O2 Sat by Pulse 100 Oximetry Medical Decision Making - Medical Decision Making 34-year-old male patient presented to the emergency department today for evaluation of cough, chest tightness, shortness of breath, and sore throat. Physical examination did reveal a intraoral ulcer over the right palatoglossal arch. Symmetric tonsils. No lymphadenopathy. Lungs are clear to auscultation with good air movement. Chest x-ray showed no acute cardiopulmonary process. Labs reviewed and are relatively unremarkable other than some leukocytosis. Did discuss the possibility of oral herpes as he does report a history of intraoral lesions. We did perform a viral culture of this lesion. Patient is currently taking Augmentin. He will be urged to continue this. We'll add steroids to his regimen. He is urged to continue breathing treatments at home. He is instructed to follow-up with his primary care physician for recheck in one to days. Return parameters were discussed in detail. He verbalizes understanding and agrees with this plan. - Lab Data Result diagrams: 03/27/19 19:31 03/27/19 19:31 Lab Results 03/27/19 03/27/19 03/27/19 Range/Units 19:31 19:31 19:31 WBC 12.9 H (3.8-10.6) k/uL RBC 5.29 (4.30-5.90) m/uL Hgb 15.4 (13.0-17.5) gm/dL Hct 44.0 (39.0-53.0) % MCV 83.2 (80.0-100.0) fL MCH 29.1 (25.0-35.0) pg MCHC 35.0 (31.0-37.0) g/dL RDW 13.3 (11.5-15.5) % Plt Count 293 (150-450) k/uL Neutrophils % 57 % Lymphocytes % 28 % Monocytes % 9 % Eosinophils % 3 % Basophils % 1 % Neutrophils # 7.3 (1.3-7.7) k/uL Lymphocytes # 3.6 (1.0-4.8) k/uL Monocytes # 1.1 H (0-1.0) k/uL Eosinophils # 0.3 (0-0.7) k/uL Basophils # 0.1 (0-0.2) k/uL Sodium 142 (137-145) mmol/L Potassium 4.0 (3.5-5.1) mmol/L Chloride 107 (98-107) mmol/L Carbon Dioxide 24 (22-30) mmol/L Anion Gap 11 mmol/L BUN 17 (9-20) mg/dL Creatinine 0.84 (0.66-1.25) mg/dL Est GFR (CKD-EPI)AfAm >90 (>60 ml/min/1.73 sqM) Est GFR (CKD-EPI)NonAf >90 (>60 ml/min/1.73 sqM) Glucose 97 (74-99) mg/dL Calcium 9.7 (8.4-10.2) mg/dL Total Bilirubin 0.5 (0.2-1.3) mg/dL AST 35 (17-59) U/L ALT 66 (21-72) U/L Alkaline Phosphatase 76 (38-126) U/L Total Protein 7.8 (6.3-8.2) g/dL Albumin 4.3 (3.5-5.0) g/dL Influenza Type A RNA (Not Detectd) Influenza Type B (PCR) (Not Detectd) Group A Strep Rapid Negative (Negative) 03/27/19 Range/Units 20:07 WBC (3.8-10.6) k/uL RBC (4.30-5.90) m/uL Hgb (13.0-17.5) gm/dL Hct (39.0-53.0) % MCV (80.0-100.0) fL MCH (25.0-35.0) pg MCHC (31.0-37.0) g/dL RDW (11.5-15.5) % Plt Count (150-450) k/uL Neutrophils % % Lymphocytes % % Monocytes % % Eosinophils % % Basophils % % Neutrophils # (1.3-7.7) k/uL Lymphocytes # (1.0-4.8) k/uL Monocytes # (0-1.0) k/uL Eosinophils # (0-0.7) k/uL Basophils # (0-0.2) k/uL Sodium (137-145) mmol/L Potassium (3.5-5.1) mmol/L Chloride (98-107) mmol/L Carbon Dioxide (22-30) mmol/L Anion Gap mmol/L BUN (9-20) mg/dL Creatinine (0.66-1.25) mg/dL Est GFR (CKD-EPI)AfAm (>60 ml/min/1.73 sqM) Est GFR (CKD-EPI)NonAf (>60 ml/min/1.73 sqM) Glucose (74-99) mg/dL Calcium (8.4-10.2) mg/dL Total Bilirubin (0.2-1.3) mg/dL AST (17-59) U/L ALT (21-72) U/L Alkaline Phosphatase (38-126) U/L Total Protein (6.3-8.2) g/dL Albumin (3.5-5.0) g/dL Influenza Type A RNA Not Detected (Not Detectd) Influenza Type B (PCR) Not Detected (Not Detectd) Group A Strep Rapid (Negative) - Radiology Data Radiology results: report reviewed, image reviewed Two-view x-ray of the chest is obtained. Report was reviewed in its entirety. Impression by Dr. Alanis shows old granulomatous disease. No acute lung disease. There is clearing of right lower lobe pneumonia compared to old exam. Normal heart. Disposition Clinical Impression: Pharyngitis, Canker sore Disposition: HOME SELF-CARE Condition: Good Instructions (If sedation given, give patient instructions): Pharyngitis (ED), Canker Sores (ED), Upper Respiratory Infection (ED), Acute Bronchitis (ED) Additional Instructions: Complete steroid prescription. Start steroids. Continue breathing treatments and inhalers. Await throat culture results. Follow-up with your primary care physician for recheck in 1-2 days. Return to the emergency department immediately for any new, worsening, or concerning symptoms. Prescriptions: predniSONE 50 mg PO DAILY #5 tablet Is patient prescribed a controlled substance at d/c from ED?: No Referrals: Duane Harper MD [Primary Care Provider] - 1-2 days Time of Disposition: 22:34
[2019-03-27 23:06] VITALS: BP 168/92
== END 2019-03-27 23:06 | disposition home or self-care (01) ==
LOC: EC 17:39
DX: K12.0 Recurrent oral aphthae (principal); D72.829 Elevated white blood cell count, unspecified; J02.9 Acute pharyngitis, unspecified; R05 Cough; R07.89 Other chest pain; R06.02 Shortness of breath; R68.83 Chills (without fever); R53.83 Other fatigue; J45.909 Unspecified asthma, uncomplicated; I10 Essential (primary) hypertension; Z87.891 Personal history of nicotine dependence; Z79.899 Other long term (current) drug therapy; Z86.14 Personal history of Methicillin resistant Staphylococcus aureus infection
CPT/HCPCS: 36415; 87529; 80053; 85025; 87040; 87081; 87430; 87502; 71046; 99283; 96374; 96375; J2930; J1885

== ENCOUNTER → 2019-06-28 | Outpatient (CLI) | payer OTHER ==
--- NOTE | 2019-06-28 10:26 | XR ---
EXAMINATION TYPE: XR thoracic spine complete DATE OF EXAM: 06/28/2019 COMPARISON: NONE HISTORY: Pain Alignment is anatomic. There is no compression deformities. Vertebral body height and disc interspa christiana are maintained. Mild hypertrophic and degenerative changes are seen. No compression deformities. Calcifications in the left lung could be related to granulomas be correlated with chest x-ray. IMPRESSION: 1. Mild multilevel degenerative disc disease. 2. Numerous calcific densities in the left lung are partially obscured correlate for pulmonary granul fabio..
--- NOTE | 2019-06-28 10:31 | XR ---
EXAM TYPE: LUMBAR SPINE X RAY SERIES COMPARISON: 03/12/2018 HISTORY: Back pain TECHNIQUE: 4 views are submitted. FINDINGS: Alignment is anatomic. The pedicles are intact. The transverse processes are intact. Hypertrophic changes seen at L4-5 and L5-S1 suggestion of a grade 1 spondylolisthesis of L5 . Facet arthropathy L4 -5 and L5-S1 with moderate degenerative disc disease L5-S1 with the prior exam. IMPRESSION: 1. Stable degenerative disc disease L5-S1 with grade 1 anterolisthesis L5 on S1. Suspected bilateral spondylolysis..
[2019-06-28 16:42] LABS: Anti-DNA, DS unit <1.0 IU/mL; Cyclic Citrull Pep IgG Unit 1.3 U/mL; Cyclic Citrullinated Pep IgG NEGATIVE (NEGATIVE); DNA Double-Stranded NEGATIVE (NEGATIVE)
[2019-06-28 17:04] LABS: C Reactive Protein 1.2 mg/dL (0.0-0.8)
== END | disposition home or self-care (01) ==
LOC: LABWHC1 09:49
PROVIDERS: ATTEND Internal Medicine
DX: M43.17 Spondylolisthesis, lumbosacral region (principal); M51.37 Other intervertebral disc degeneration, lumbosacral region; M51.34 Other intervertebral disc degeneration, thoracic region; M19.90 Unspecified osteoarthritis, unspecified site
CPT/HCPCS: 36415; 72072; 72110; 82550; 85652; 86038; 86140; 86200; 86225; 86431

== ENCOUNTER 2019-07-18 20:52 | Emergency (ER) | payer OTHER ==
[2019-07-18 20:56] VITALS: TEMP 98.3
[2019-07-18] MEDS ORDERED: ACETAMINOPHEN TAB 500 MG TAB PO STA (21:51)
[2019-07-18] MEDS ORDERED: IBUPROFEN 800 MG TAB PO STA (21:51)
[2019-07-18] MEDS ORDERED: DIAZEPAM 5 MG TAB PO STA (21:51)
[2019-07-18] MEDS ORDERED: DEXAMETHASONE 4 MG TAB PO STA (21:51)
[2019-07-18] MEDS ORDERED: HYDROmorphone 1 MG/ML 1 ML SYRINGE IM STA (21:51)
[2019-07-18 22:06] VITALS: BP 161/70; PULSE 75; RESP 16
--- NOTE | 2019-07-18 22:26 | ED ---
Back Pain HPI - General Chief Complaint: Back Pain/Injury Stated Complaint: back pain Time Seen by Provider: 07/18/19 21:27 Source: patient, RN notes reviewed, old records reviewed Limitations: no limitations - History of Present Illness Initial Comments: This is a 34-year-old male DF for evaluation patient is a with severe back pain history of back pain. No recent travel history or sick contacts. Patient denies any trauma or fevers. No loss of bowel or bladder history. No weakness of lower extremities. Patient is complaining of severe pain with no trauma. Was able to actively today with pain was worse after taking his kids to school Complaint: back pain -: hour(s) Similar Symptoms Previously: Yes Place: home Radiation: none Severity: severe Severity scale (1-10): 8 Quality: burning Consistency: constant Improves With: none Worsens With: none Context: while lifting, turning/twisting Associated Symptoms: denies other symptoms - Related Data Home Medications Medication Instructions Recorded Confirmed Albuterol Inhaler [Ventolin 2 puff INHALATION RT-Q4H PRN 11/18/13 03/27/19 Inhaler] Enalapril [Vasotec] 5 mg PO DAILY 11/18/13 03/27/19 ALPRAZolam [Xanax] 0.5 mg PO BID PRN 02/24/14 03/27/19 Atenolol 25 mg PO DAILY 11/12/15 03/27/19 Ipratropium-Albuterol Nebulize 3 ml INHALATION RT-Q4H PRN 11/12/15 03/27/19 [Duoneb 0.5 mg-3 mg/3 ml Soln] Montelukast [Singulair] 10 mg PO DAILY 11/12/15 03/27/19 Omeprazole 20 mg PO DAILY 01/01/19 03/27/19 Amoxic-Pot Clav 875-125Mg 1 tab PO BID 03/27/19 03/27/19 [Augmentin 875-125] hydrALAZINE HCL [Apresoline] 25 mg PO TID 03/27/19 03/27/19 Previous Rx's Medication Instructions Recorded traMADol HCl [Ultram] 50 mg PO Q6H PRN #20 tab 12/29/15 Ibuprofen [Motrin] 600 mg PO Q8HR PRN #30 tab 01/01/19 predniSONE 50 mg PO DAILY #5 tablet 03/27/19 Allergies Allergy/AdvReac Type Severity Reaction Status Date / Time No Known Allergies Allergy Verified 07/18/19 20:56 Review of Systems ROS Statement: Those systems with pertinent positive or pertinent negative responses have been documented in the HPI. ROS Other: All systems not noted in ROS Statement are negative. Past Medical History Past Medical History: Asthma, Hypertension Additional Past Medical History / Comment(s): kidney stones, MIGRAINES History of Any Multi-Drug Resistant Organisms: MRSA Date of last positivie culture/infection: 11/12/15 MDRO Source:: LEFT FOOT Past Surgical History: No Surgical Hx Reported Past Psychological History: Anxiety Smoking Status: Former smoker Past Alcohol Use History: Occasional Past Drug Use History: Marijuana General Exam - General Exam Comments Initial Comments: Patient crying in pain here with girlfriend was and laboratory on arrival in emergency room No focal neurological findings Limitations: no limitations General appearance: alert, in no apparent distress, anxious Head exam: Present: atraumatic, normocephalic, normal inspection Eye exam: Present: normal appearance, PERRL, EOMI. Absent: scleral icterus, conjunctival injection, periorbital swelling ENT exam: Present: normal exam, mucous membranes moist Neck exam: Present: normal inspection. Absent: tenderness, meningismus, lymphadenopathy Respiratory exam: Present: normal lung sounds bilaterally. Absent: respiratory distress, wheezes, rales, rhonchi, stridor Cardiovascular Exam: Present: regular rate, normal rhythm, normal heart sounds. Absent: systolic murmur, diastolic murmur, rubs, gallop, clicks GI/Abdominal exam: Present: soft, normal bowel sounds. Absent: distended, tenderness, guarding, rebound, rigid Extremities exam: Present: normal inspection, full ROM, normal capillary refill. Absent: tenderness, pedal edema, joint swelling, calf tenderness Back exam: Present: normal inspection Neurological exam: Present: alert, oriented X3, CN II-XII intact Psychiatric exam: Present: normal affect, normal mood Skin exam: Present: warm, dry, intact, normal color. Absent: rash Course Vital Signs 07/18/19 07/18/19 20:54 21:56 Temperature 98.3 F Pulse Rate 86 75 Respiratory 20 16 Rate Blood Pressure 154/79 161/70 O2 Sat by Pulse 97 96 Oximetry - Reevaluation(s) Reevaluation #1: 07/18/19 22:41 Medical records reviewed Reevaluation #2: 07/18/19 22:41 Pain is controlled patient is able to ambulate Medical Decision Making - Medical Decision Making 34 male to the ER for evaluation of severe lower back pain with history of back pain and trauma. Patient denies any new no trauma, severe back pain and low back pain x-rays negative. Pain is controlled rate with irregularly no neurological findings on initial examination. or repeat Exam. Patient is able to actively here in the ER again will be discharged - Radiology Data Radiology results: report reviewed (X-ray lumbosacral spine is negative for acute disease), image reviewed Disposition Clinical Impression: Mechanical back pain, Strain of lumbar region, Mid back pain, Lumbar radiculopathy Disposition: HOME SELF-CARE Condition: Good Instructions (If sedation given, give patient instructions): Acute Low Back Pain (ED) Is patient prescribed a controlled substance at d/c from ED?: No Referrals: Duane Harper MD [Primary Care Provider] - 1-2 days
--- NOTE | 2019-07-18 22:27 | XR ---
EXAMINATION TYPE: XR lumbosacral spine min 4V DATE OF EXAM: 07/18/2019 COMPARISON: 06/28/2019 HISTORY: Back pain TECHNIQUE: 5 views FINDINGS: Lumbar vertebra show spondylolysis of L5 with a first-degree L5-S1 spondylolisthesis. There is mild narrowing of L5-S1 disc space. Sacroiliac joints appear intact. There is no compression frac ture. 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 No acute fr acture seen.
[2019-07-18] MEDS ORDERED: ACET/COD 300 MG/30 MG STARTER PACK 6 TAB BTL PO STA (22:43)
== END 2019-07-18 22:58 | disposition home or self-care (01) ==
LOC: EC 20:52
DX: S39.012A Strain of muscle, fascia and tendon of lower back, initial encounter (principal); M54.16 Radiculopathy, lumbar region; J45.909 Unspecified asthma, uncomplicated; I10 Essential (primary) hypertension; Z87.891 Personal history of nicotine dependence; Z79.899 Other long term (current) drug therapy; Z86.14 Personal history of Methicillin resistant Staphylococcus aureus infection; X58.XXXA Exposure to other specified factors, initial encounter; Y92.009 Unspecified place in unspecified non-institutional (private) residence as the place of occurrence of the external cause
CPT/HCPCS: 72110; 99284; 96372; J8540; J1170

== ENCOUNTER 2019-12-30 19:23 | Emergency (ER) | payer OTHER ==
[2019-12-30 19:31] VITALS: PULSE 75; RESP 18; TEMP 98.2
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
[2019-12-30 23:41] VITALS: BP 160/99
== END 2019-12-30 20:00 | disposition home or self-care (01) ==
LOC: EC 19:23
DX: F32.9 Major depressive disorder, single episode, unspecified (principal); F41.9 Anxiety disorder, unspecified; R06.02 Shortness of breath; J45.909 Unspecified asthma, uncomplicated; I10 Essential (primary) hypertension; Z79.51 Long term (current) use of inhaled steroids; Z79.899 Other long term (current) drug therapy; Z87.891 Personal history of nicotine dependence; Z86.14 Personal history of Methicillin resistant Staphylococcus aureus infection
CPT/HCPCS: 99283; 99284

== ENCOUNTER 2019-12-30 21:03 | Emergency (ER) | payer OTHER ==
[2019-12-30 21:08] VITALS: TEMP 98.2
[2019-12-30 21:15] VITALS: RESP 18
[2019-12-30] MEDS ORDERED: ALPRAZolam 0.5 MG TAB PO STA (21:38)
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
[2019-12-30 21:53] VITALS: BP 152/91; PULSE 62
== END 2019-12-30 22:02 | disposition home or self-care (01) ==
LOC: EC 21:03
DX: F43.22 Adjustment disorder with anxiety (principal); J45.909 Unspecified asthma, uncomplicated; F41.9 Anxiety disorder, unspecified; I10 Essential (primary) hypertension; Z79.51 Long term (current) use of inhaled steroids; Z79.899 Other long term (current) drug therapy; Z87.891 Personal history of nicotine dependence
CPT/HCPCS: 99283

== ENCOUNTER 2019-12-31 16:26 | Observation (INO) | payer OTHER ==
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
[2019-12-31 17:02] LABS: Basophils % (A) 0 %; Eosinophils # (A) 0.1 k/uL (0-0.7); Eosinophils % (A) 1 %; HCT 44.4 % (39.0-53.0); HGB 14.4 gm/dL (13.0-17.5); Lymphocytes # (A) 2.7 k/uL (1.0-4.8); Lymphocytes % (A) 24 %; MCH 28.3 pg (25.0-35.0); MCHC 32.6 g/dL (31.0-37.0); Mean Platelet Volume 8.7; Monocytes # (A) 0.8 k/uL (0-1.0); Monocytes % (A) 7 %; Neutrophils # (A) 7.6 k/uL (1.3-7.7); Neutrophils % (A) 66 %; Platelet Count 269 k/uL (150-450); RDW 13.1 % (11.5-15.5); WBC 11.5 k/uL (3.8-10.6)
--- NOTE | 2019-12-31 17:08 | XR ---
EXAMINATION TYPE: XR chest 1V portable DATE OF EXAM: 12/31/2019 COMPARISON: 03/27/2019 HISTORY: Cough. Sore throat. TECHNIQUE: FINDINGS: There is no heart failure nor confluent pneumonic infiltrate. Costophrenic angles are clear . There are small multiple calcified granulomata in the left lower lobe. There are no hilar masses. B zehra thorax is intact. IMPRESSION: No active cardiopulmonary disease. No change.
[2019-12-31 17:11] LABS: Acetaminophen <10.0 ug/mL; African American GFR (CKD) >90 (>60 ml/min/1.73 sqM); Alcohol <10 mg/dL; Anion Gap 7 mmol/L; Blood Urea Nitrogen 16 mg/dL (9-20); Calcium 9.5 mg/dL (8.4-10.2); Carbon Dioxide 21 mmol/L (22-30); Chloride 109 mmol/L (98-107); Non-African American GFR(CKD) >90 (>60 ml/min/1.73 sqM); Sodium 137 mmol/L (137-145)
[2019-12-31 17:15] LABS: Glucose 96 mg/dL (74-99); Potassium 5.8 mmol/L (3.5-5.1)
[2019-12-31 17:23] LABS: INR 1.1 (<1.2); Partial Thromboplastin Time 26.1 sec (22.0-30.0)
[2019-12-31] MEDS ORDERED: NITROGLYCERIN SL TABS 0.4 MG TAB SUBLINGUAL PRN (17:44)
[2019-12-31] MEDS ORDERED: ASPIRIN 81 MG PO STA (17:44)
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
[2019-12-31] MEDS: PANTOPRAZOLE 40 MG TABLET PO SCH (21:39)
[2019-12-31] MEDS: busPIRone HCl 5 MG TAB PO SCH (22:46)
[2019-12-31] MEDS: MONTELUKAST 10 MG TAB PO SCH (22:46)
[2019-12-31] MEDS: hydrALAZINE HCL 50 MG TAB PO SCH (22:46)
[2019-12-31] MEDS: LISINOPRIL 20 MG TAB PO SCH (22:47)
[2019-12-31] MEDS: METOPROLOL TARTRATE 50 MG TAB PO SCH (22:47)
[2019-12-31] MEDS: amLODIPine 10 MG TAB PO SCH (22:48)
[2020-01-01 01:41] LABS: Amphetamine Screen,Urine Not Detected (NotDetected); Benzodiazepines Screen,Urine Detected (NotDetected); Cocaine Screen,Urine Not Detected (NotDetected); Opiate Screen,Urine Not Detected (NotDetected); Phencyclidine Screen,Urine Not Detected (NotDetected); Urn Cannabinoid Scrn Detected (NotDetected)
[2020-01-01 01:42] LABS: Barbiturate Screen,Urine Not Detected (NotDetected); Methadone Screen, Urine Not Detected (NotDetected); Oxycodone Screen, Urine Not Detected (NotDetected); Tricyclic Antidepressant,Urine Not Detected (NotDetected)
[2020-01-01] MEDS: PANTOPRAZOLE 40 MG TABLET PO SCH (06:02)
[2020-01-01 06:32] LABS: Basophils % (A) 0 %; Eosinophils # (A) 0.2 k/uL (0-0.7); Eosinophils % (A) 2 %; HCT 39.5 % (39.0-53.0); HGB 13.9 gm/dL (13.0-17.5); Lymphocytes # (A) 3.8 k/uL (1.0-4.8); Lymphocytes % (A) 37 %; MCH 31.4 pg (25.0-35.0); MCHC 35.1 g/dL (31.0-37.0); MCV 89.3 fL (80.0-100.0); Mean Platelet Volume 7.4; Monocytes # (A) 0.8 k/uL (0-1.0); Monocytes % (A) 8 %; Neutrophils # (A) 5.1 k/uL (1.3-7.7); Neutrophils % (A) 50 %; Platelet Count 239 k/uL (150-450); RBC 4.42 m/uL (4.30-5.90); RDW 13.1 % (11.5-15.5); WBC 10.1 k/uL (3.8-10.6)
[2020-01-01 06:44] LABS: African American GFR (CKD) >90 (>60 ml/min/1.73 sqM); Anion Gap 5 mmol/L; Blood Urea Nitrogen 15 mg/dL (9-20); Calcium 9.2 mg/dL (8.4-10.2); Carbon Dioxide 26 mmol/L (22-30); Chloride 108 mmol/L (98-107); Cholesterol 167 mg/dL (<200); Glucose 79 mg/dL (74-99); HDL Cholesterol 23 mg/dL (40-60); LDL Cholesterol,Calculated 113 mg/dL (0-99); Non-African American GFR(CKD) >90 (>60 ml/min/1.73 sqM); Potassium 4.1 mmol/L (3.5-5.1); Sodium 139 mmol/L (137-145); Triglycerides 155 mg/dL (<150)
[2020-01-01] MEDS: busPIRone HCl 5 MG TAB PO SCH ×3 (08:18→21:05)
[2020-01-01] MEDS: ASPIRIN 325 MG TAB PO SCH (08:18)
[2020-01-01] MEDS: CHOLECALCIFEROL 1,000 UNIT TAB PO SCH (08:18)
[2020-01-01] MEDS: METOPROLOL TARTRATE 50 MG TAB PO SCH ×2 (08:18→21:04)
[2020-01-01] MEDS: hydrALAZINE HCL 50 MG TAB PO SCH ×3 (08:18→21:05)
[2020-01-01] MEDS: LISINOPRIL 20 MG TAB PO SCH ×2 (08:18→21:05)
--- NOTE | 2020-01-01 11:50 | P.CRDCN ---
History of Present Illness Consult date: 01/01/20 History of present illness: This 34-year-old gentleman was seen in the emergency room several times in the emergency room. Apparently was brought initially for long term clearance. Allegedly he was taken in to enforcement custody for ongoing gun issues. Patient presented to the hospital with complaints of chest pain, lethargy and suicidal ideation. Patient claims that he had the chest discomfort for several years. It is almost constant. Not associated with any nausea vomiting or sweating. It doesn't change with phase of respiration. Not clearly exertional. Patient was sleeping when I went to the room. Complained of having pain at scale of 4. His EKGs are normal. The cardiac enzymes are negative. Toxicology screening showed presence of benzodiazepines and high-level some marijuana. His chest pains appear to be atypical. We'll evaluate him with his stress test and echocardiogram. He'll then negative no further cardiac workup is necessary Review of Systems As per the chart Past Medical History Past Medical History: Asthma, Hypertension Additional Past Medical History / Comment(s): kidney stones, MIGRAINES History of Any Multi-Drug Resistant Organisms: MRSA Date of last positivie culture/infection: 08/29/19 MDRO Source:: mouth Past Surgical History: No Surgical Hx Reported Past Psychological History: Anxiety, Depression Smoking Status: Former smoker Past Alcohol Use History: Occasional Past Drug Use History: Marijuana Additional Drug Use History / Comment(s): denies all other illicit substances - Past Family History Father History Unknown: Yes Mother Family Medical History: Hypertension Medications and Allergies Home Medications Medication Instructions Recorded Confirmed Type Cholecalciferol (Vitamin D3) 50 mcg PO DAILY 12/31/19 12/31/19 History [Vitamin D3] Lisinopril [Zestril] 20 mg PO BID 12/31/19 12/31/19 History Metoprolol Tartrate [Lopressor] 50 mg PO BID 12/31/19 12/31/19 History Montelukast Sodium [Singulair] 10 mg PO HS 12/31/19 12/31/19 History Omeprazole [PriLOSEC] 20 mg PO DAILY 12/31/19 12/31/19 History amLODIPine [Norvasc] 10 mg PO BID 12/31/19 12/31/19 History busPIRone HCl [Buspar] 5 mg PO TID 12/31/19 12/31/19 History hydrALAZINE HCL [Apresoline] 50 mg PO TID 12/31/19 12/31/19 History Allergies Allergy/AdvReac Type Severity Reaction Status Date / Time No Known Allergies Allergy Verified 12/30/19 21:08 Physical Exam Vitals: Vital Signs Temp Pulse Pulse Resp BP BP Pulse Ox 01/01/20 08:15 98.1 F 70 18 146/67 97 01/01/20 03:10 98.2 F 60 18 126/73 98 12/31/19 23:00 98.4 F 51 L 16 96/61 94 L 12/31/19 20:00 98.3 F 71 18 165/84 98 12/31/19 18:10 77 18 144/82 98 12/31/19 16:31 98.4 F 83 16 163/90 97 Intake and Output 12/31/19 01/01/20 01/01/20 22:59 06:59 14:59 Output Total 300 Balance -300 Output: Urine 300 Other: Weight 169.19 kg 151.109 kg GENERAL EXAM: Patient is alert and oriented and doesn't appear to be in any a cute distress HEENT: Normocephalic. Normal reaction of pupils, equal size, normal range of extraocular motion. No erythema or exudates in the throat. NECK: No masses, no nuchal rigidity. CHEST: No chest wall deformity. LUNGS: Equal air entry with no crackles or wheeze. HEART: S1 and S2 normal with no audible mumurs or gallops. Regular rhythm, femorals equal on both sides.. ABDOMEN: No hepatosplenomegaly, normal bowel sounds, no guarding or rigidity. SKIN: No rashes CENTRAL NERVOUS SYSTEM: No focal deficits. EXTREMITIES: No cyanosis, clubbing or edema. Results 01/01/20 06:00 01/01/20 06:00 Cardiac Enzymes 12/31/19 12/31/19 12/31/19 Range/Units 16:54 19:46 22:39 Troponin I 0.014 <0.012 <0.012 (0.000-0.034) ng/mL Coagulation 12/31/19 Range/Units 16:54 PT 11.0 (9.0-12.0) sec APTT 26.1 (22.0-30.0) sec Lipids 01/01/20 Range/Units 06:00 Triglycerides 155 H (<150) mg/dL Cholesterol 167 (<200) mg/dL HDL Cholesterol 23 L (40-60) mg/dL CBC 12/31/19 01/01/20 Range/Units 16:54 06:00 WBC 11.5 H 10.1 (3.8-10.6) k/uL RBC 5.10 4.42 (4.30-5.90) m/uL Hgb 14.4 13.9 (13.0-17.5) gm/dL Hct 44.4 39.5 (39.0-53.0) % Plt Count 269 239 (150-450) k/uL Comprehensive Metabolic Panel 12/31/19 12/31/19 01/01/20 Range/Units 16:54 19:46 06:00 Sodium 137 139 (137-145) mmol/L Potassium 5.8 H 3.7 4.1 (3.5-5.1) mmol/L Chloride 109 H 108 H (98-107) mmol/L Carbon Dioxide 21 L 26 (22-30) mmol/L BUN 16 15 (9-20) mg/dL Creatinine 0.83 0.86 (0.66-1.25) mg/dL Glucose 96 79 (74-99) mg/dL Calcium 9.5 9.2 (8.4-10.2) mg/dL Current Medications Generic Name Dose Route Start Last Admin Trade Name Freq PRN Reason Stop Dose Admin Amlodipine Besylate 10 mg 12/31/19 21:00 12/31/19 22:48 Norvasc PO Not Given HS HIRA Aspirin 325 mg 01/01/20 09:00 01/01/20 08:18 Aspirin PO 325 mg DAILY HIRA Administration Buspirone HCl 5 mg 12/31/19 22:00 01/01/20 08:18 Buspar PO 5 mg TID HIRA Administration Cholecalciferol 2,000 unit 01/01/20 09:00 01/01/20 08:18 Vitamin D3 (25 Mcg = 1000 Iu) PO 2,000 unit DAILY HIRA Administration Hydralazine HCl 50 mg 12/31/19 22:00 01/01/20 08:18 Apresoline PO 50 mg TID HIRA Administration Sodium Chloride 1,000 mls @ 75 mls/hr 12/31/19 19:45 Saline 0.45% IV .[id number] HIRA Lisinopril 20 mg 12/31/19 21:00 01/01/20 08:18 Zestril PO 20 mg BID HIRA Administration Metoprolol Tartrate 50 mg 12/31/19 21:00 01/01/20 08:18 Lopressor PO 50 mg BID HIRA Administration Montelukast Sodium 10 mg 12/31/19 21:00 12/31/19 22:46 Singulair PO Not Given HS HIRA Nitroglycerin 0.4 mg 12/31/19 17:44 Nitrostat SUBLINGUAL Q5M PRN Chest Pain Pantoprazole Sodium 40 mg 12/31/19 19:45 01/01/20 06:02 Protonix PO 40 mg [id number] HIRA Administration Intake and Output 12/31/19 01/01/20 01/01/20 22:59 06:59 14:59 Output Total 300 Balance -300 Output: Urine 300 Other: Weight 169.19 kg 151.109 kg 01/01/20 06:00 01/01/20 06:00 EKG Interpretations (text) Sinus rhythm Assessment and Plan (1) Chest pain Current Visit: Yes Status: Acute Code(s): R07.9 - CHEST PAIN, UNSPECIFIED SNOMED Code(s): 24205148 (2) Acute anxiety Current Visit: No Status: Acute Code(s): F41.9 - ANXIETY DISORDER, UNSPECIFIED SNOMED Code(s): 99674919 Plan: His chest pains are atypical. Cardiac enzymes are negative. EKG did not reveal any acute changes. Patient to be scheduled for a regular stress test and echocardiogram
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
[2020-01-01] MEDS: IBUPROFEN 600 MG TAB PO SCH ×2 (16:45→21:07)
[2020-01-01] MEDS: SODIUM CHLORIDE 0.45% 1,000 ML IV SCH ×2 (19:45→19:46)
[2020-01-01] MEDS: MONTELUKAST 10 MG TAB PO SCH (21:05)
[2020-01-01] MEDS: amLODIPine 10 MG TAB PO SCH (21:05)
[2020-01-01 22:08] VITALS: RESP 18
[2020-01-02] MEDS: SODIUM CHLORIDE 0.45% 1,000 ML IV SCH (00:33)
[2020-01-02] MEDS: IBUPROFEN 600 MG TAB PO SCH (08:58)
[2020-01-02] MEDS: hydrALAZINE HCL 50 MG TAB PO SCH (08:59)
[2020-01-02] MEDS: CHOLECALCIFEROL 1,000 UNIT TAB PO SCH (08:59)
[2020-01-02] MEDS: busPIRone HCl 5 MG TAB PO SCH (08:59)
[2020-01-02] MEDS: LISINOPRIL 20 MG TAB PO SCH (08:59)
[2020-01-02] MEDS: ASPIRIN 325 MG TAB PO SCH (08:59)
[2020-01-02] MEDS: PANTOPRAZOLE 40 MG TABLET PO SCH (09:01)
--- NOTE | 2020-01-02 09:59 | ECHOF ---
Referral Reason:Chest pain and cardiomyopathy MEASUREMENTS -------- HEIGHT: 182.9 cm WEIGHT: 151.0 kg BP: RVIDd: 3.9 cm (< 3.3) IVSd: 1.2 cm (0.6 - 1.1) LVIDd: 5.6 cm (3.9 - 5.3) LVPWd: 1.0 cm (0.6 - 1.1) IVSs: 1.6 cm LVIDs: 4.5 cm LVPWs: 1.3 cm LA Diam: 3.9 cm (2.7 - 3.8) LAESV Index (A-L): 22.04 ml/m Ao Diam: 3.3 cm (2.0 - 3.7) AV Cusp: 2.1 cm (1.5 - 2.6) LA Diam: 4.2 cm (2.7 - 3.8) MV EXCURSION: 17.007 mm (> 18.000) MV EF SLOPE: 93 mm/s (70 - 150) EPSS: 0.8 cm MV E Mick: 0.95 m/s MV DecT: 151 ms MV A Mick: 0.73 m/s MV E/A Ratio: 1.31 RAP: 5.00 mmHg RVSP: 28.60 mmHg FINDINGS -------- Sinus rhythm. This was a technically adequate study. Morbid Obesity LV size, wall thickness and systolic function are normal, with an EF greater than 55%. The left tyron tricular size is normal. The right ventricle is mildly enlarged. Normal LA size by volume 22+/-6 ml/m2. The right atrial size is normal. The aortic valve is trileaflet, and appears structurally normal. No aortic stenosis or regurgitation. The mitral valve is normal. Mild mitral regurgitation is present. Mild tricuspid regurgitation present. Right ventricular systolic pressure is normal at < 35 mmHg. The pulmonic valve was not well visualized. There is no pulmonic regurgitation present. The aortic root size is normal. There is no pericardial effusion. CONCLUSIONS -------- 1. Morbid Obesity 2. LV size, wall thickness and systolic function are normal, with an EF greater than 55%. 3. The right ventricle is mildly enlarged. 4. The aortic valve is trileaflet, and appears structurally normal. No aortic stenosis or regurgitati on. 5. Mild mitral regurgitation is present. 6. Mild tricuspid regurgitation present. 7. There is no pericardial effusion. SPECIMEN COLLECTOR: Ely Brody RDCS
[2020-01-02] MEDS: METOPROLOL TARTRATE 50 MG TAB PO SCH (12:07)
--- NOTE | 2020-01-02 12:42 | P.CN ---
Psychiatric Consult - . Consult date: 01/02/20 Consult:: 01/02/20 12:40 Patient had been seen by EPS nurse Martha about patient's depression and chest pain. Case was discussed over the phone with EPS nurse. Patient is currently on a [facility] hold. Please see EPS report completed on 01/01/2020. Automobile Or Truck Rental Dispatcher informed patient's nurse on the medical floors to refer to report and informed patient's primary attending.
--- NOTE | 2020-01-02 13:10 | P.DS ---
Providers Date of admission: 12/31/19 17:44 Expected date of discharge: 01/09/20 (Chest pain, suicidal ideation.) Attending physician: Duane Harper Consults: 12/31/19 16:44 Consult Physician Routine Consulting Provider: Cecilio Milligan Consult Reason/Comments: suicidal Do you want consulting provider notified?: Yes 12/31/19 16:45 Consult Physician Routine Consulting Provider: Adam Delgado Consult Reason/Comments: chest pain Do you want consulting provider notified?: Yes Primary care physician: Duane Harper Discharge summary date of service 01/02/2020. Final diagnosis: Acute a typical chest pain. Suicidal ideation cleared by psychiatrist consultation for discharge. Status post stress test and echocardiogram was negative and cleared by Dr. Nunez cardiology for discharge. Chronic back pain has been taking care of by the orthopedic associate and Dr. Crooks/Luis. History of asthma with about exacerbation. Hypertension well-controlled on discharge. Anxiety disorder and probable major depression however the psychiatrist did did not recommend any adding medication. Patient advised to contact [facility] for further follow-up and treatment. Presentation to the ER: Patient brought by the [facility] with the complaint of chest pain and panic attacks and suicidal ideation. Patient admitted to hospital with the consultation for cardiology and psychiatry and repeated cardiac panel as well plan for for further investigation. Hospital course: Patient seen by cardiology Dr. Nunez and resulted in echocardiogram as well as stress test discussed with Dr. Nunez and is negative and cleared for discharge. Also consultation with the psychiatrist due to the suicidal ideation and recurrent thoughts. And the possible admission to the psychiatric floor however that was not accepted in the psych floor in the psychiatric nurse indicated clearance for discharge home. Patient monitored through his hospitalization. He had chronic low back pain was treated with ibuprofen 600 mg, Has reviewed the medication with the patient and his vital sign today was stable, also he stated that he had 800 mg of ibuprofen 3 times a day from the orthopedic and he doesn't need any further medication. Patient to resume his home medication and the blood pressure is controlled currently, patient is ambulatory no complain of the chest pain. On exam on discharge: Head was normocephalic and atraumatic pupil was equal reactive conjunctiva was pink sclera was nonicteric. Neck was supple no JVD no thyromegaly no lymphadenopathy. Chest is clear to auscultation and percussion no wheezes no rhonchi's. The heart: Regular sinus rhythm with no chest pain. Abdomen obese positive bowel sound protuberant. No tenderness in the 4 quadrants. Extremities no edema and positive pulses bilateral and symmetrical. Neurologically patient is ambulatory and no neuro deficit no tremor. Assessment patient stable general condition to be discharged home or to the alf. Plan continue the current medication and follow-up with [facility] for his psychiatric disorder as well as continue current medicine. As the psychiatrist did not had any medication for him. Patient Condition at Discharge: Fair Plan - Discharge Summary Discharge Rx Participant: No New Discharge Prescriptions: New RX: Aspirin 325 mg PO DAILY tab RX: Cholecalciferol [Vitamin D3 (25 Mcg = 1000 Iu)] 2,000 unit PO DAILY tab Continue RX: Omeprazole [PriLOSEC] 20 mg PO DAILY RX: Montelukast Sodium [Singulair] 10 mg PO HS RX: Cholecalciferol (Vitamin D3) [Vitamin D3] 50 mcg PO DAILY RX: hydrALAZINE HCL [Apresoline] 50 mg PO TID RX: amLODIPine [Norvasc] 10 mg PO BID RX: Metoprolol Tartrate [Lopressor] 50 mg PO BID RX: Lisinopril [Zestril] 20 mg PO BID RX: busPIRone HCl [Buspar] 5 mg PO TID Discharge Medication List RX: Cholecalciferol (Vitamin D3) [Vitamin D3] 50 mcg PO DAILY 12/31/19 [History] RX: Lisinopril [Zestril] 20 mg PO BID 12/31/19 [History] RX: Metoprolol Tartrate [Lopressor] 50 mg PO BID 12/31/19 [History] RX: Montelukast Sodium [Singulair] 10 mg PO HS 12/31/19 [History] RX: Omeprazole [PriLOSEC] 20 mg PO DAILY 12/31/19 [History] RX: amLODIPine [Norvasc] 10 mg PO BID 12/31/19 [History] RX: busPIRone HCl [Buspar] 5 mg PO TID 12/31/19 [History] RX: hydrALAZINE HCL [Apresoline] 50 mg PO TID 12/31/19 [History] RX: Aspirin 325 mg PO DAILY tab 01/02/20 [Rx] RX: Cholecalciferol [Vitamin D3 (25 Mcg = 1000 Iu)] 2,000 unit PO DAILY tab 01/02/20 [Rx] Follow up Appointment(s)/Referral(s): Duane Harper MD [Primary Care Provider] - 1-2 days Charleen Lopez DO [Doctor of Osteopathic Medicine] - 1 Week Discharge Disposition: HOME SELF-CARE
[2020-01-02 13:11] VITALS: BP 144/69; PULSE 69; TEMP 97.6
--- NOTE | 2020-01-02 13:55 | ECHOS ---
STRESS ECHOCARDIOGRAM LUMASON: - Vial INDICATIONS: Chest Pain. MEDICATIONS: BASELINE HEART RATE: 58 BASELINE BLOOD PRESSURE: 148/50 MAXIMUM HEART RATE: 141 MAXIMUM BLOOD PRESSURE: 209/63 85% MPHR: 157 100% MPHR: 185 METS: 8.7 MAXIMUM STAGE REACHED: 3 TOTAL EXERCISE TIME: 7:15 CLINICAL INFORMATION: Baseline rhythm is a sinus mechanism, rate of 58, normal axis and intervals. Normal electrocardiogram. Baseline blood pressure 148/50 mmHg. Patient exercised on Dagoberto protocol for 7 minutes, 15 seconds, reaching a peak rate 141 beats per minute which is less than his 85% maximum predicted heart rate. Peak blood pressure 209/63 mmHg. Test was terminated due to fatigue. Patient had chest discomfort that did not change during exercise. Electrocardiac monitoring revealed no evidence of diagnostic ischemic ST deviation. FINDINGS: Baseline echocardiogram revealed normal wall motion. At peak exercise, there was normal wall motion augmentation with no hypokinesis or dyskinesis. CONCLUSION: 1. Decreased exercise tolerance with nondiagnostic electrocardiograph stress testing secondary to the inability to achieve 85% maximum predicted heart rate. At the heart rate achieved, there was no evidence of stress-induced ischemia. 2. Nondiagnostic stress echocardiogram with no evidence of stress-induced ischemia at the rate achieved. The patient achieved a peak rate of 141 beats per minute which is less than his 85% of maximum predicted heart rate. MMODL / IJN: [id number] /
== END 2020-01-02 14:47 | disposition home or self-care (01) ==
LOC: EC 16:26 → 3SCARD 17:44
PROVIDERS: ADMIT Internal Medicine; ATTEND Internal Medicine
DX: R07.89 Other chest pain (principal); R07.2 Precordial pain; R53.83 Other fatigue; R11.0 Nausea; R45.851 Suicidal ideations; D72.829 Elevated white blood cell count, unspecified; R79.89 Other specified abnormal findings of blood chemistry; F23 Brief psychotic disorder; Z91.14 Patient's other noncompliance with medication regimen; E87.5 Hyperkalemia; G89.29 Other chronic pain; M54.5 Low back pain; J45.909 Unspecified asthma, uncomplicated; I10 Essential (primary) hypertension; F41.9 Anxiety disorder, unspecified; F41.0 Panic disorder [episodic paroxysmal anxiety]; G43.909 Migraine, unspecified, not intractable, without status migrainosus; E66.9 Obesity, unspecified; Z68.41 Body mass index [BMI] 40.0-44.9, adult; Z86.14 Personal history of Methicillin resistant Staphylococcus aureus infection; Z87.442 Personal history of urinary calculi; Z87.891 Personal history of nicotine dependence; Z79.899 Other long term (current) drug therapy; Z82.49 Family history of ischemic heart disease and other diseases of the circulatory system; Z11.59 Encounter for screening for other viral diseases
CPT/HCPCS: 93005 ×3; 99285; 36415; 94660 ×3; 93306; 93351; 80061; 80048 ×2; 83605; 83735; 84132; 84484; 85025 ×2; 85610; 85730; 80306; 83520; 71045; G0378 ×3; G0480 ×2; U0003; 80320; 80329

== ENCOUNTER → 2020-12-25 | Outpatient (CLI) | payer OTHER ==
--- NOTE | 2020-12-25 12:25 | XR ---
EXAMINATION TYPE: XR chest 2V DATE OF EXAM: 12/25/2020 COMPARISON: 12/31/2019 TECHNIQUE: PA and lateral views submitted. HISTORY: Presurgical FINDINGS: Numerous calcifications in the left lung stable suggestive of chronic granulomatous disease . The lungs are clear and there is no pneumothorax, pleural effusion, or focal pneumonia. IMPRESSION: 1. No acute process. Correlate for chronic granulomatous disease.
[2020-12-25 12:55] LABS: Basophils # (A) 0.1 k/uL (0-0.2); Basophils % (A) 1 %; Eosinophils # (A) 0.2 k/uL (0-0.7); Eosinophils % (A) 2 %; HCT 46.1 % (39.0-53.0); HGB 15.1 gm/dL (13.0-17.5); Lymphocytes # (A) 3.3 k/uL (1.0-4.8); Lymphocytes % (A) 33 %; MCH 28.5 pg (25.0-35.0); MCHC 32.8 g/dL (31.0-37.0); MCV 87.1 fL (80.0-100.0); Mean Platelet Volume 7.4; Monocytes % (A) 10 %; Neutrophils # (A) 5.1 k/uL (1.3-7.7); Neutrophils % (A) 51 %; Platelet Count 301 k/uL (150-450); RBC 5.29 m/uL (4.30-5.90); RDW 13.3 % (11.5-15.5)
[2020-12-25 12:56] LABS: Appearance,Urine Clear (Clear); Bilirubin,Urine Negative (Negative); Blood,Urine Negative (Negative); Color,Urine Yellow; Glucose,Urine (UA) Negative (Negative); Ketones,Urine Negative (Negative); Leukocyte Esterase,Urine Negative (Negative); Nitrite,Urine Negative (Negative); PH, Urine 5.5 (5.0-8.0); Protein,Urine Trace (Negative); Specific Gravity,Urine 1.034 (1.001-1.035); Urobilinogen,Urine <2.0 mg/dL (<2.0)
[2020-12-25 13:06] LABS: Partial Thromboplastin Time 27.5 sec (22.0-30.0); Prothrombin Time 10.3 sec (9.0-12.0)
[2020-12-25 13:17] LABS: African American GFR (CKD) >90 (>60 ml/min/1.73 sqM); Anion Gap 9 mmol/L; Blood Urea Nitrogen 17 mg/dL (9-20); Calcium 10.3 mg/dL (8.4-10.2); Carbon Dioxide 24 mmol/L (22-30); Chloride 109 mmol/L (98-107); Glucose 99 mg/dL (74-99); Non-African American GFR(CKD) >90 (>60 ml/min/1.73 sqM); Potassium 4.5 mmol/L (3.5-5.1); Sodium 142 mmol/L (137-145)
== END | disposition home or self-care (01) ==
LOC: LABPAT 11:57
PROVIDERS: ATTEND Orthopaedic Surgery Orthopaedic Surgery of the Spine
DX: Z01.812 Encounter for preprocedural laboratory examination (principal); Z01.810 Encounter for preprocedural cardiovascular examination; Z01.818 Encounter for other preprocedural examination; M43.10 Spondylolisthesis, site unspecified
CPT/HCPCS: 36415; 71046; 80048; 81003; 85025; 85610; 85730; 87070

== ENCOUNTER 2021-01-03 | Inpatient (IN) | payer OTHER | END 2021-01-04 11:19 | disposition home or self-care (01) | DRG 460 | PROVIDERS: ADMIT Orthopaedic Surgery Orthopaedic Surgery of the Spine | PROC: 0SG30AJ Fusion of Lumbosacral Joint with Interbody Fusion Device, Posterior Approach, Anterior Column, Open Approach (ICD-10-PCS; principal; 2021-01-02) | PROC: 0ST40ZZ Resection of Lumbosacral Disc, Open Approach (ICD-10-PCS; 2021-01-02) | PROC: 01NB0ZZ Release Lumbar Nerve, Open Approach (ICD-10-PCS; 2021-01-02) | DX: M51.17 Intervertebral disc disorders with radiculopathy, lumbosacral region (principal); M43.17 Spondylolisthesis, lumbosacral region; F41.9 Anxiety disorder, unspecified; J45.909 Unspecified asthma, uncomplicated; I10 Essential (primary) hypertension; G47.30 Sleep apnea, unspecified; Z87.442 Personal history of urinary calculi; G43.909 Migraine, unspecified, not intractable, without status migrainosus; Z86.14 Personal history of Methicillin resistant Staphylococcus aureus infection; K21.9 Gastro-esophageal reflux disease without esophagitis; Z82.41 Family history of sudden cardiac death; Z87.891 Personal history of nicotine dependence; Z82.49 Family history of ischemic heart disease and other diseases of the circulatory system; Z79.51 Long term (current) use of inhaled steroids; F31.9 Bipolar disorder, unspecified; Z79.899 Other long term (current) drug therapy | CPT/HCPCS: 72100; 80048; 85025; 86850; 86900; 86901; 94640; 94660 ==

== ENCOUNTER 2021-01-12 22:49 | Observation (INO) | payer OTHER ==
[2021-01-12] MEDS ORDERED: VANCOMYCIN IV PER PHARMACY 1 EACH MISC MISCELLANE PRN (23:08)
[2021-01-12] MEDS ORDERED: SODIUM CHLORIDE 0.9% 1,000 ML IV STA ×2 (23:08)
[2021-01-12] MEDS ORDERED: VANCOMYCIN 2,000 MG in SODIUM CHLORIDE 0.9% 500 ML 500 ML IVPB ONE (23:15)
--- NOTE | 2021-01-12 23:17 | ED ---
Skin/Abscess/FB HPI - General Chief complaint: Skin/Abscess/Foreign Body Stated complaint: Post-op back pain Time Seen by Provider: 01/12/21 23:07 Source: patient, RN notes reviewed, old records reviewed Mode of arrival: ambulatory Limitations: no limitations - History of Present Illness Initial comments: This is a 35-year-old male to the ER for evaluation patient is about a week and half postop of the back surgery. Patient's outpatient courses been doing fine but has had increased drainage from the incisions over the last day and a half with fever and chills and the drainage apparently malodorous. Patient presents for evaluation of postop infection MD complaint: abscess/boil, other (Postoperative infection) -: days(s) Tetanus Up to Date: yes Location: back Severity: moderate Severity scale (1-10): 4 Quality: aching Consistency: intermittent Improves with: none Worsens with: none Context: recent illness Associated symptoms: fever, chills Treatments Prior to Arrival: none - Related Data Home Medications Medication Instructions Recorded Confirmed Cholecalciferol (Vitamin D3) 100 mcg PO BID 12/31/19 01/02/21 [Vitamin D3] Metoprolol Tartrate [Lopressor] 50 mg PO BID 12/31/19 12/28/20 Montelukast Sodium [Singulair] 10 mg PO HS 12/31/19 01/02/21 Omeprazole [PriLOSEC] 20 mg PO DAILY 12/31/19 12/28/20 amLODIPine [Norvasc] 10 mg PO BID 12/31/19 01/02/21 busPIRone HCl [Buspar] 5 mg PO TID 12/31/19 12/28/20 hydrALAZINE HCL [Apresoline] 50 mg PO TID 12/31/19 12/28/20 lisinopriL [Zestril] 20 mg PO BID 12/31/19 12/28/20 FLUoxetine HCL [PROzac] 10 mg PO DAILY 12/28/20 12/28/20 FLUoxetine HCL [PROzac] 20 mg PO HS 12/28/20 01/02/21 Ibuprofen 600 mg PO Q6HR PRN 12/28/20 12/28/20 Naproxen Sodium [Aleve] 440 mg PO HS 12/28/20 12/28/20 Albuterol Sulfate [Ventolin HFA] 1 - 2 puff INHALATION Q6H PRN 01/02/21 01/02/21 Budesonide/Formoterol Fumarate 1 puff INHALATION PRN 01/02/21 [Symbicort 80-4.5 Mcg Inhaler] Previous Rx's Medication Instructions Recorded HYDROcodone/APAP 5-325MG [[place] 5] 1 each PO Q4HR PRN #42 tab 01/04/21 Sennosides-Docusate Sodium 1 tab PO BID PRN #60 tablet 01/04/21 [Senokot-S] Allergies Allergy/AdvReac Type Severity Reaction Status Date / Time No Known Allergies Allergy Verified 01/12/21 22:59 Review of Systems ROS Statement: Those systems with pertinent positive or pertinent negative responses have been documented in the HPI. ROS Other: All systems not noted in ROS Statement are negative. Past Medical History Past Medical History: Asthma, GERD/Reflux, Hypertension, Osteoarthritis (OA), Sleep Apnea/CPAP/BIPAP Additional Past Medical History / Comment(s): kidney stones, MIGRAINES, C PAP MACHINE, History of Any Multi-Drug Resistant Organisms: MRSA Date of last positivie culture/infection: 08/29/19 MDRO Source:: FOOT,MOUTH Past Surgical History: Orthopedic Surgery Additional Past Surgical History / Comment(s): back fusion 01/02/21 Past Anesthesia/Blood Transfusion Reactions: Previous Problems w/ Anesthesia, Motion Sickness Additional Past Anesthesia/Blood Transfusion Reaction / Comment(s): GRANDMOTHER HAD PROBLEM WITH LUNGS AND TROUBLE COMING OUT OF ANESTHESIA HAD A CARDIAC ARREST Past Psychological History: ADD/ADHD, Anxiety, Depression, Panic Disorder Smoking Status: Former smoker Past Alcohol Use History: Rare Past Drug Use History: Marijuana - Past Family History Father History Unknown: Yes Mother Family Medical History: Hypertension General Exam - General Exam Comments Initial Comments: Wounds clean dry and intact but does have drainage Limitations: no limitations General appearance: alert, in no apparent distress Head exam: Present: atraumatic, normocephalic, normal inspection Eye exam: Present: normal appearance, PERRL, EOMI. Absent: scleral icterus, conjunctival injection, periorbital swelling ENT exam: Present: normal exam, mucous membranes moist Neck exam: Present: normal inspection. Absent: tenderness, meningismus, lymphadenopathy Respiratory exam: Present: normal lung sounds bilaterally. Absent: respiratory distress, wheezes, rales, rhonchi, stridor Cardiovascular Exam: Present: regular rate, normal rhythm, normal heart sounds. Absent: systolic murmur, diastolic murmur, rubs, gallop, clicks GI/Abdominal exam: Present: soft, normal bowel sounds. Absent: distended, tenderness, guarding, rebound, rigid Extremities exam: Present: normal inspection, full ROM, normal capillary refill. Absent: tenderness, pedal edema, joint swelling, calf tenderness Back exam: Present: normal inspection Neurological exam: Present: alert, oriented X3, CN II-XII intact Psychiatric exam: Present: normal affect, normal mood Skin exam: Present: warm, dry, intact, normal color. Absent: rash Course Vital Signs 01/12/21 01/13/21 22:53 00:45 Temperature 98.6 F 98.2 F Pulse Rate 80 74 Respiratory 18 18 Rate Blood Pressure 128/91 136/68 O2 Sat by Pulse 97 96 Oximetry - Reevaluation(s) Reevaluation #1: 01/13/21 02:26 Medical record is reviewed Reevaluation #2: 01/13/21 02:26 Images noted from the site that is cultured Reevaluation #3: 01/13/21 02:27 Patient's pain is improved in no distress Medical Decision Making - Medical Decision Making 35 male to the ER for evaluation postop infection will place on antibiotics for surgical evaluation and treatment - Lab Data Result diagrams: 01/12/21 23:30 01/12/21 23:30 Lab Results 01/12/21 01/12/21 01/12/21 Range/Units 23:30 23:30 23:30 WBC 16.1 H (3.8-10.6) k/uL RBC 4.23 L (4.30-5.90) m/uL Hgb 12.6 L (13.0-17.5) gm/dL Hct 36.5 L (39.0-53.0) % MCV 86.4 (80.0-100.0) fL MCH 29.7 (25.0-35.0) pg MCHC 34.4 (31.0-37.0) g/dL RDW 12.4 (11.5-15.5) % Plt Count 408 (150-450) k/uL MPV 6.7 Neutrophils % 62 % Lymphocytes % 25 % Monocytes % 9 % Eosinophils % 2 % Basophils % 1 % Neutrophils # 9.9 H (1.3-7.7) k/uL Lymphocytes # 4.0 (1.0-4.8) k/uL Monocytes # 1.5 H (0-1.0) k/uL Eosinophils # 0.4 (0-0.7) k/uL Basophils # 0.1 (0-0.2) k/uL PT 9.9 (9.0-12.0) sec INR 0.9 (<1.2) APTT 26.4 (22.0-30.0) sec Sodium 142 (137-145) mmol/L Potassium 4.1 (3.5-5.1) mmol/L Chloride 105 (98-107) mmol/L Carbon Dioxide 27 (22-30) mmol/L Anion Gap 10 mmol/L BUN 19 (9-20) mg/dL Creatinine 0.86 (0.66-1.25) mg/dL Est GFR (CKD-EPI)AfAm >90 (>60 ml/min/1.73 sqM) Est GFR (CKD-EPI)NonAf >90 (>60 ml/min/1.73 sqM) Glucose 123 H (74-99) mg/dL Plasma Lactic Acid John (0.7-2.0) mmol/L Calcium 9.5 (8.4-10.2) mg/dL Phosphorus 4.5 (2.5-4.5) mg/dL Magnesium 2.0 (1.6-2.3) mg/dL Total Bilirubin 0.2 (0.2-1.3) mg/dL AST 21 (17-59) U/L ALT 20 (4-49) U/L Alkaline Phosphatase 64 (38-126) U/L Creatine Kinase 46 L (55-170) U/L C-Reactive Protein 1.6 H (<1.0) mg/dL Total Protein 6.5 (6.3-8.2) g/dL Albumin 3.6 (3.5-5.0) g/dL 01/12/21 Range/Units 23:30 WBC (3.8-10.6) k/uL RBC (4.30-5.90) m/uL Hgb (13.0-17.5) gm/dL Hct (39.0-53.0) % MCV (80.0-100.0) fL MCH (25.0-35.0) pg MCHC (31.0-37.0) g/dL RDW (11.5-15.5) % Plt Count (150-450) k/uL MPV Neutrophils % % Lymphocytes % % Monocytes % % Eosinophils % % Basophils % % Neutrophils # (1.3-7.7) k/uL Lymphocytes # (1.0-4.8) k/uL Monocytes # (0-1.0) k/uL Eosinophils # (0-0.7) k/uL Basophils # (0-0.2) k/uL PT (9.0-12.0) sec INR (<1.2) APTT (22.0-30.0) sec Sodium (137-145) mmol/L Potassium (3.5-5.1) mmol/L Chloride (98-107) mmol/L Carbon Dioxide (22-30) mmol/L Anion Gap mmol/L BUN (9-20) mg/dL Creatinine (0.66-1.25) mg/dL Est GFR (CKD-EPI)AfAm (>60 ml/min/1.73 sqM) Est GFR (CKD-EPI)NonAf (>60 ml/min/1.73 sqM) Glucose (74-99) mg/dL Plasma Lactic Acid John 1.8 (0.7-2.0) mmol/L Calcium (8.4-10.2) mg/dL Phosphorus (2.5-4.5) mg/dL Magnesium (1.6-2.3) mg/dL Total Bilirubin (0.2-1.3) mg/dL AST (17-59) U/L ALT (4-49) U/L Alkaline Phosphatase (38-126) U/L Creatine Kinase (55-170) U/L C-Reactive Protein (<1.0) mg/dL Total Protein (6.3-8.2) g/dL Albumin (3.5-5.0) g/dL - EKG Data -: EKG Interpreted by Me (EKG sinus rhythm 77 MS 158 QRS 94 QTC 450) - Radiology Data Radiology results: report reviewed (Chest x-rays negative for acute disease), image reviewed Disposition Clinical Impression: Postoperative fever Disposition: ADMITTED IP TO THIS [facility] Condition: Fair Is patient prescribed a controlled substance at d/c from ED?: No
[2021-01-12 23:42] LABS: Basophils # (A) 0.1 k/uL (0-0.2); Basophils % (A) 1 %; Eosinophils # (A) 0.4 k/uL (0-0.7); Eosinophils % (A) 2 %; HCT 36.5 % (39.0-53.0); HGB 12.6 gm/dL (13.0-17.5); Lymphocytes % (A) 25 %; MCH 29.7 pg (25.0-35.0); MCHC 34.4 g/dL (31.0-37.0); MCV 86.4 fL (80.0-100.0); Mean Platelet Volume 6.7; Monocytes # (A) 1.5 k/uL (0-1.0); Monocytes % (A) 9 %; Neutrophils # (A) 9.9 k/uL (1.3-7.7); Neutrophils % (A) 62 %; Platelet Count 408 k/uL (150-450); RBC 4.23 m/uL (4.30-5.90); RDW 12.4 % (11.5-15.5); WBC 16.1 k/uL (3.8-10.6)
[2021-01-12 23:58] LABS: INR 0.9 (<1.2); Partial Thromboplastin Time 26.4 sec (22.0-30.0); Prothrombin Time 9.9 sec (9.0-12.0)
[2021-01-13 00:02] LABS: ALT 20 U/L (4-49); AST 21 U/L (17-59); African American GFR (CKD) >90 (>60 ml/min/1.73 sqM); Albumin 3.6 g/dL (3.5-5.0); Alkaline Phosphatase 64 U/L (38-126); Anion Gap 10 mmol/L; Blood Urea Nitrogen 19 mg/dL (9-20); C Reactive Protein 1.6 mg/dL (<1.0); Calcium 9.5 mg/dL (8.4-10.2); Carbon Dioxide 27 mmol/L (22-30); Chloride 105 mmol/L (98-107); Creatine Kinase 46 U/L (55-170); Glucose 123 mg/dL (74-99); Non-African American GFR(CKD) >90 (>60 ml/min/1.73 sqM); Phosphorus 4.5 mg/dL (2.5-4.5); Potassium 4.1 mmol/L (3.5-5.1); Sodium 142 mmol/L (137-145); Total Bilirubin 0.2 mg/dL (0.2-1.3); Total Protein 6.5 g/dL (6.3-8.2)
--- NOTE | 2021-01-13 00:04 | XR ---
EXAMINATION TYPE: XR chest 2V DATE OF EXAM: 01/12/2021 COMPARISON: 12/25/2020 HISTORY: Weakness TECHNIQUE: 2 views FINDINGS: There is a nodular infiltrate in the left lung with multiple small calcific densities. The right lung is clear. Heart and mediastinum are normal. There is no pleural effusion. IMPRESSION: Calcific nodular infiltrate in the left lung similar to old exam and consistent with old granulomatous disease. Normal heart.
[2021-01-13] MEDS ORDERED: ACETAMINOPHEN TAB 325 MG TAB PO PRN (00:35)
[2021-01-13] MEDS ORDERED: ONDANSETRON 4 MG/2 ML VIAL IVP PRN (00:35)
[2021-01-13] MEDS ORDERED: MORPHINE SULFATE 4 MG/ML SYRINGE IV PRN (00:35)
[2021-01-13] MEDS ORDERED: NALOXONE 0.4 MG/ML 1 ML VIAL IV PRN (00:35)
[2021-01-13] MEDS: IBUPROFEN 400 MG TAB PO PRN ×3 (02:14→23:49)
[2021-01-13] MEDS: SODIUM CHLORIDE 0.9% 1,000 ML IV SCH ×3 (02:34→19:49)
[2021-01-13 02:43] LABS: Appearance,Urine Clear (Clear); Bilirubin,Urine Negative (Negative); Blood,Urine Negative (Negative); Color,Urine Yellow; Glucose,Urine (UA) Negative (Negative); Ketones,Urine Negative (Negative); Leukocyte Esterase,Urine Negative (Negative); Nitrite,Urine Negative (Negative); Protein,Urine Negative (Negative); Specific Gravity,Urine 1.014 (1.001-1.035); Urobilinogen,Urine <2.0 mg/dL (<2.0)
[2021-01-13] MEDS ORDERED: VANCOMYCIN 2,000 MG in SODIUM CHLORIDE 0.9% 500 ML 500 ML IVPB SCH (09:00)
[2021-01-13] MEDS: lisinopriL 20 MG TAB PO SCH (10:42)
[2021-01-13] MEDS: CHOLECALCIFEROL 25 MCG (1000 IU) TABLET PO SCH (10:42)
[2021-01-13] MEDS: CYCLOBENZAPRINE 10 MG TAB PO PRN ×2 (10:42→23:48)
[2021-01-13] MEDS: amLODIPine 10 MG TAB PO SCH (10:42)
[2021-01-13] MEDS: hydrOXYzine pamoate 25 MG CAP PO SCH (11:17)
[2021-01-13] MEDS: hydrALAZINE HCL 50 MG TAB PO SCH ×2 (11:18→20:10)
--- NOTE | 2021-01-13 13:12 | P.HPOR ---
History of Present Illness H&P Date: 01/13/21 This is a 35-year-old male who presented to the emergency room on 01/12/2021 for fever and increased drainage from his surgical incisions. Patient is status post minimally invasive decompression fusion L5 S1 for his spondylolisthesis with stenosis and lower extremity radiculopathy and disc herniation on 01/02/[address] Lopez. Patient is seen and evaluated at bedside today. Patient states he became concerned when the drainage increased and had a foul odor. Patient states that his measured temperature was 99 at the highest. Patient states that he was also experiencing more pain last night. Patient states that this morning he is feeling much better and is able to ambulate and mobilize without any pain or difficulty. Per nursing, there has not been any drainage from his surgical incisions. Patient denies any new complaints today. Patient's past medical history significant for asthma, GERD, hypertension, osteoarthritis, sleep apnea, kidney stones and migraines. Patient denies any fever/chills, numbness, weakness, tingling, abdominal pain, shortness of breath or chest pain. Review of Systems See HPI. Past Medical History Past Medical History: Asthma, GERD/Reflux, Hypertension, Osteoarthritis (OA), Sleep Apnea/CPAP/BIPAP Additional Past Medical History / Comment(s): kidney stones, MIGRAINES, C PAP MACHINE, History of Any Multi-Drug Resistant Organisms: MRSA Date of last positivie culture/infection: 08/29/19 MDRO Source:: FOOT,MOUTH Past Surgical History: Orthopedic Surgery Additional Past Surgical History / Comment(s): back fusion 01/02/21 Past Anesthesia/Blood Transfusion Reactions: Previous Problems w/ Anesthesia, Motion Sickness Additional Past Anesthesia/Blood Transfusion Reaction / Comment(s): GRANDMOTHER HAD PROBLEM WITH LUNGS AND TROUBLE COMING OUT OF ANESTHESIA HAD A CARDIAC ARREST Past Psychological History: ADD/ADHD, Anxiety, Depression, Panic Disorder Smoking Status: Former smoker Past Alcohol Use History: Rare Past Drug Use History: Marijuana - Past Family History Father History Unknown: Yes Mother Family Medical History: Hypertension Medications and Allergies Home Medications Medication Instructions Recorded Confirmed Type Montelukast Sodium [Singulair] 10 mg PO HS 12/31/19 01/13/21 History amLODIPine [Norvasc] 10 mg PO DAILY 12/31/19 01/13/21 History lisinopriL [Zestril] 40 mg PO DAILY 12/31/19 01/13/21 History Budesonide/Formoterol Fumarate 1 puff INHALATION RT-BID 01/02/21 01/13/21 History [Symbicort 80-4.5 Mcg Inhaler] Albuterol Sulfate [Proair Hfa] 2 puff INHALATION RT-Q6H PRN 01/13/21 01/13/21 History Cholecalciferol [Vitamin D3 (25 50 mcg PO DAILY 01/13/21 01/13/21 History Mcg = 1000 Iu)] Clindamycin HCl 300 mg PO QID 01/13/21 01/13/21 History Cyclobenzaprine [Flexeril] 10 mg PO Q8H PRN 01/13/21 01/13/21 History Fluticasone Nasal [place] [Flonase 1 spray EA NOSTRIL BID 01/13/21 01/13/21 History Nasal [place]] Omeprazole 40 mg PO DAILY 01/13/21 01/13/21 History Stimulant 8.6/50mg 1 tab PO BID PRN 01/13/21 01/13/21 History hydrALAZINE HCL [Apresoline] 100 mg PO BID 01/13/21 01/13/21 History hydrOXYzine pamoate [hydrOXYzine 50 mg PO DAILY 01/13/21 01/13/21 History PAMOATE] oxyCODONE-APAP 5-325MG [Percocet 1 tab PO Q4H PRN 01/13/21 01/13/21 History 5-325 mg] Allergies Allergy/AdvReac Type Severity Reaction Status Date / Time No Known Allergies Allergy Verified 01/13/21 08:47 Physical Examination On exam patient is sitting comfortably in a chair in no acute distress and is a lert and oriented 3. Patient is well-appearing. On inspection, surgical incisions are healing well without any surrounding erythema, drainage or warmth. There is no tenderness to palpation. Patient has good range of motion of bilateral upper and lower extremities. Sensation intact. Neurovascular status circulatory status are intact. Head is normocephalic and atraumatic. Patient has good range of motion of the head and neck. Results - Labs Labs: Abnormal Lab Results - Last 24 Hours (Table) 01/12/21 01/12/21 Range/Units 23:30 23:30 WBC 16.1 H (3.8-10.6) k/uL RBC 4.23 L (4.30-5.90) m/uL Hgb 12.6 L (13.0-17.5) gm/dL Hct 36.5 L (39.0-53.0) % Neutrophils # 9.9 H (1.3-7.7) k/uL Monocytes # 1.5 H (0-1.0) k/uL Glucose 123 H (74-99) mg/dL Creatine Kinase 46 L (55-170) U/L C-Reactive Protein 1.6 H (<1.0) mg/dL H & H 01/12/21 Range/Units 23:30 Hgb 12.6 L (13.0-17.5) gm/dL Hct 36.5 L (39.0-53.0) % Coagulation 01/12/21 Range/Units 23:30 INR 0.9 (<1.2) Result Diagrams: 01/12/21 23:30 01/12/21 23:30 Assessment and Plan (1) Status post lumbar spinal fusion Current Visit: No Status: Acute Code(s): Z98.1 - ARTHRODESIS STATUS SNOMED Code(s): 51348012151215 Plan: 1. Patient is afebrile. White blood cell count 16.1. Patient is well- appearing and states that his symptoms are improving. On exam there is no active drainage from his surgical incisions. 2. Recommend continuation of IV antibiotics. 3. Planning for discharge home in the next 24-48 hours.
[2021-01-13] MEDS: FLUTICASONE 50MCG/SPRAY NASAL 16GM EA NOSTRIL SCH (20:10)
[2021-01-13] MEDS: VANCOMYCIN 2,000 MG in SODIUM CHLORIDE 0.9% 500 ML 500 ML IVPB SCH (20:31)
[2021-01-13] MEDS ORDERED: MONTELUKAST 10 MG TAB PO SCH (21:00)
[2021-01-14] MEDS: VANCOMYCIN 2,000 MG in SODIUM CHLORIDE 0.9% 500 ML 500 ML IVPB SCH ×2 (03:47→10:29)
[2021-01-14] MEDS: SODIUM CHLORIDE 0.9% 1,000 ML IV SCH ×2 (03:48→08:20)
[2021-01-14] MEDS ORDERED: PANTOPRAZOLE 40 MG TABLET PO SCH (07:30)
[2021-01-14 07:48] VITALS: BP 128/77; PULSE 94; RESP 16; TEMP 97.5
[2021-01-14] MEDS: IBUPROFEN 400 MG TAB PO PRN (08:18)
[2021-01-14] MEDS: CYCLOBENZAPRINE 10 MG TAB PO PRN (08:18)
[2021-01-14] MEDS: lisinopriL 20 MG TAB PO SCH (08:19)
[2021-01-14] MEDS: hydrALAZINE HCL 50 MG TAB PO SCH (08:19)
[2021-01-14] MEDS: hydrOXYzine pamoate 25 MG CAP PO SCH (08:19)
[2021-01-14] MEDS: FLUTICASONE 50MCG/SPRAY NASAL 16GM EA NOSTRIL SCH (08:20)
[2021-01-14] MEDS: amLODIPine 10 MG TAB PO SCH (08:20)
[2021-01-14] MEDS: CHOLECALCIFEROL 25 MCG (1000 IU) TABLET PO SCH (08:20)
[2021-01-14 09:54] LABS: Basophils # (A) 0.07 X 10*3/uL (0.00-0.10); Basophils % (A) 0.5 %; Eosinophils # (A) 0.33 X 10*3/uL (0.04-0.35); Eosinophils % (A) 2.6 %; HCT 40.1 % (39.6-50.0); HGB 12.8 g/dL (13.0-17.0); Lymphocytes # (A) 3.49 X 10*3/uL (0.90-5.00); Lymphocytes % (A) 27.3 %; MCH 28.6 pg (27.0-32.0); MCHC 31.9 g/dL (32.0-37.0); MCV 89.7 fL (80.0-97.0); Mean Platelet Volume 9.9 fL (9.5-12.2); Monocytes # (A) 1.51 X 10*3/uL (0.20-1.00); Monocytes % (A) 11.8 %; Neutrophils # (A) 7.21 X 10*3/uL (1.80-7.70); Neutrophils % (A) 56.5 %; Platelet Count 403 X 10*3/uL (140-440); RBC 4.47 X 10*6/uL (4.40-5.60); WBC 12.77 X 10*3/uL (4.50-10.00)
--- NOTE | 2021-01-14 10:52 | P.DS ---
Providers Date of admission: 01/13/21 00:35 Attending physician: Charleen Lopez Primary care physician: [facility] Course: She is seen and examined today. He says he is feeling very good his pain is significantly improved at his lower back and his legs. He says the drainage is slowing down greatly and may have stopped. He denies any fevers chills. Denies any, pain or night sweats. He had initially had undergone surgery on January 02 at his lumbar spinal decompression and fusion. Since that time he has been having significant pain and last week he had some drainage at the site. He did a slight fever but no erythema no purulence. He had a low-grade temperature 100 at that time. I discussed this with the emergency room physician and He was discharged home from the emergency room at [facility] with clindamycin and close follow-up. He said that he has filled the clindamycin but did not call to schedule follow- up for Thursday as planned. On Thursday he had increased drainage and presented here to the emergency room when he was admitted for IV antibiotics and evaluation. He says he has been doing better and his strength has improved. He denies any more fevers. He has been on vancomycin here in Hospital. His legs are doing well. His pain is improving greatly. He's been afebrile during this hospitalization. His vitals are stable. Chest has good excursion deep inspection expiration His abdomen soft nontender. At his back the incision sites appear clean. There is no erythema at all there is no purulence. There is some serous drainage and should at the superior pinpoint aspect of his left-sided incision. There is no purulence or no pus. I'm unable to actively extrude any fluid but there is some dried serous fluid on the dressing. There is some palpable fluid collection. It is not tense. His legs have good sustained dorsal flexion and EHL. He is able to walk around the room well. His labs have shown no evidence of any growth in the past 24 hours for blood or for the wound culture. His white count is normal. Assessment and plan Draining postoperative seroma 12 days status post minimally invasive decompression and fusion of lumbar spine No obvious infectious process The patient seems to have a draining seroma at the left incision site. There is no evidence of acute infection. I think that he still needs prophylactic medication and we will continue his clindamycin as prescribed orally as outpatient. He is making improvement and he remains afebrile and I think it is okay for him to be discharged home today. I will see him back closely in the office this week. I discussed this with him at length. I discussed the risk of the drainage with him and the need to monitor the area closely. We discussed the possibility for irrigation and debridement of the area as well. For now we will continue to follow closely with oral medication and oral antibiotics and local wound care. I discussed this with him and answered his questions and he is agreeable. He'll be discharged home today with close follow-up. Patient Condition at Discharge: Fair Plan - Discharge Summary Discharge Rx Participant: No New Discharge Prescriptions: No Action Montelukast Sodium [Singulair] 10 mg PO HS amLODIPine [Norvasc] 10 mg PO DAILY lisinopriL [Zestril] 40 mg PO DAILY Cholecalciferol [Vitamin D3 (25 Mcg = 1000 Iu)] 50 mcg PO DAILY oxyCODONE-APAP 5-325MG [Percocet 5-325 mg] 1 tab PO Q4H PRN PRN Reason: Pain Albuterol Sulfate [Proair Hfa] 2 puff INHALATION RT-Q6H PRN PRN Reason: Shortness Of Breath Omeprazole 40 mg PO DAILY Fluticasone Nasal [place] [Flonase Nasal [place]] 1 spray EA NOSTRIL BID busPIRone HCL [Buspar] 30 mg PO BID FLUoxetine HCL [PROzac] 20 mg PO DAILY FLUoxetine HCL [PROzac] 10 mg PO HS Sennosides/Docusate Sodium [[place] 8.6-50 mg Tablet] 1 tab PO BID PRN PRN Reason: Constipation hydrOXYzine pamoate [Vistaril] 25 mg PO BID Budesonide/Formoterol Fumarate [Symbicort 80-4.5 Mcg Inhaler] 1 puff INHALATION RT-BID hydrOXYzine pamoate [hydrOXYzine PAMOATE] 50 mg PO DAILY hydrALAZINE HCL [Apresoline] 100 mg PO BID Cyclobenzaprine [Flexeril] 10 mg PO Q8H PRN PRN Reason: Muscle Spasm Clindamycin HCl 300 mg PO QID hydrOXYzine pamoate [hydrOXYzine PAMOATE] 50 mg PO DAILY PRN PRN Reason: Anxiety Discharge Medication List Montelukast Sodium [Singulair] 10 mg PO HS 12/31/19 [History] amLODIPine [Norvasc] 10 mg PO DAILY 12/31/19 [History] lisinopriL [Zestril] 40 mg PO DAILY 12/31/19 [History] Budesonide/Formoterol Fumarate [Symbicort 80-4.5 Mcg Inhaler] 1 puff INHALATION RT-BID 01/02/21 [History] Albuterol Sulfate [Proair Hfa] 2 puff INHALATION RT-Q6H PRN 01/13/21 [History] Cholecalciferol [Vitamin D3 (25 Mcg = 1000 Iu)] 50 mcg PO DAILY 01/13/21 [History] Clindamycin HCl 300 mg PO QID 01/13/21 [History] Cyclobenzaprine [Flexeril] 10 mg PO Q8H PRN 01/13/21 [History] Fluticasone Nasal [place] [Flonase Nasal [place]] 1 spray EA NOSTRIL BID 01/13/21 [History] Omeprazole 40 mg PO DAILY 01/13/21 [History] hydrALAZINE HCL [Apresoline] 100 mg PO BID 01/13/21 [History] hydrOXYzine pamoate [hydrOXYzine PAMOATE] 50 mg PO DAILY 01/13/21 [History] oxyCODONE-APAP 5-325MG [Percocet 5-325 mg] 1 tab PO Q4H PRN 01/13/21 [History] FLUoxetine HCL [PROzac] 10 mg PO HS 01/14/21 [History] FLUoxetine HCL [PROzac] 20 mg PO DAILY 01/14/21 [History] Sennosides/Docusate Sodium [[place] 8.6-50 mg Tablet] 1 tab PO BID PRN 01/14/21 [History] busPIRone HCL [Buspar] 30 mg PO BID 01/14/21 [History] hydrOXYzine pamoate [Vistaril] 25 mg PO BID 01/14/21 [History] hydrOXYzine pamoate [hydrOXYzine PAMOATE] 50 mg PO DAILY PRN 01/14/21 [History] Follow up Appointment(s)/Referral(s): Duane Harper MD [Primary Care Provider] - 1-2 days Charleen Lopez DO [Doctor of Osteopathic Medicine] - 01/18/21 (Please call to make appointment for patient for Thursday, January 18) Activity/Diet/Wound Care/Special Instructions: Reinforce dressing and change dressing as needed. Keep incision site dry. May ambulate as tolerated. Avoid heavy or rigorous activity.
[2021-01-14 10:58] LABS: African American GFR (CKD) 132.3 (60.0-200.0); Albumin/Globulin Ratio 1.6 (1.60-3.17); Anion Gap 8.6 mmol/L (4.00-12.00); Calcium 9.3 mg/dL (8.7-10.3); Carbon Dioxide 26.4 mmol/L (21.6-31.8); Globulin 2.5 g/dL (1.6-3.3); Non-African American GFR(CKD) 114.1 (60.0-200.0); Potassium 4.4 mmol/L (3.5-5.5); Total Bilirubin 0.5 mg/dL (0.2-1.2); Total Protein 6.5 g/dL (6.2-8.2)
[2021-01-14] MEDS ORDERED: VANCOMYCIN TROUGH DUE 1 EACH MISC MISCELLANE ONE (18:00)
== END 2021-01-14 14:05 | disposition home or self-care (01) ==
LOC: EC 22:49 → 6NMEDSUR 01-13 00:35
PROVIDERS: ADMIT Orthopaedic Surgery Orthopaedic Surgery of the Spine; ATTEND Orthopaedic Surgery Orthopaedic Surgery of the Spine
DX: G89.18 Other acute postprocedural pain (principal); R50.82 Postprocedural fever; Z98.1 Arthrodesis status; I10 Essential (primary) hypertension; J45.909 Unspecified asthma, uncomplicated; G43.909 Migraine, unspecified, not intractable, without status migrainosus; G47.30 Sleep apnea, unspecified; K21.9 Gastro-esophageal reflux disease without esophagitis; M19.90 Unspecified osteoarthritis, unspecified site; F32.9 Major depressive disorder, single episode, unspecified; F41.0 Panic disorder [episodic paroxysmal anxiety]; F90.9 Attention-deficit hyperactivity disorder, unspecified type; Z87.442 Personal history of urinary calculi; Z86.14 Personal history of Methicillin resistant Staphylococcus aureus infection; Z87.891 Personal history of nicotine dependence; Z79.899 Other long term (current) drug therapy; Z79.51 Long term (current) use of inhaled steroids; Z82.49 Family history of ischemic heart disease and other diseases of the circulatory system
CPT/HCPCS: 96361 ×3; 96366 ×2; 96375; 96365; 99285; 36415; 93005; 80053 ×2; 82550; 83605; 83735; 84100; 85025 ×2; 85610; 85730; 86140; 81003; 87040; 87070; 87205; 71046; G0378 ×2; J3370 ×2; J2405; J0696

== ENCOUNTER 2022-12-15 17:07 | Emergency (ER) | payer OTHER ==
[2022-12-15 17:20] VITALS: RESP 18; TEMP 98.2
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
[2022-12-15 20:01] LABS: Amphetamine Screen,Urine Not Detected (NotDetected); Barbiturate Screen,Urine Not Detected (NotDetected); Benzodiazepines Screen,Urine Not Detected (NotDetected); Cocaine Screen,Urine Not Detected (NotDetected); Methadone Screen, Urine Not Detected (NotDetected); Opiate Screen,Urine Not Detected (NotDetected); Oxycodone Screen, Urine Not Detected (NotDetected); Phencyclidine Screen,Urine Not Detected (NotDetected); Tricyclic Antidepressant,Urine Not Detected (NotDetected); Urn Cannabinoid Scrn Detected (NotDetected)
[2022-12-15 21:25] VITALS: BP 165/81; PULSE 62
== END 2022-12-15 21:25 | disposition home or self-care (01) ==
LOC: SUPCPDRO 17:07 → EC 17:07
DX: F32.A Depression, unspecified (principal); I10 Essential (primary) hypertension; J45.909 Unspecified asthma, uncomplicated; K21.9 Gastro-esophageal reflux disease without esophagitis; M19.90 Unspecified osteoarthritis, unspecified site; F41.9 Anxiety disorder, unspecified; F12.90 Cannabis use, unspecified, uncomplicated; Z79.51 Long term (current) use of inhaled steroids; Z79.899 Other long term (current) drug therapy; Z87.891 Personal history of nicotine dependence
CPT/HCPCS: 80306; 82075; 99284

== ENCOUNTER 2023-11-17 22:28 | Inpatient (IN) | payer MEDICAID, OTHER ==
[2023-11-17] MEDS: LORazepam 1 MG TAB PO STA (23:20)
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
[2023-11-18] MEDS ORDERED: LORazepam 2 MG/ML INJ IM PRN (02:25)
[2023-11-18] MEDS ORDERED: HALOPERIDOL LACTATE 5 MG/ML 1 ML VIAL IM PRN (02:25)
[2023-11-18] MEDS ORDERED: MAGNESIUM HYDROXIDE 2,400 MG/30 ML CUP PO PRN (02:25)
[2023-11-18] MEDS ORDERED: hydrOXYzine HCL 50 MG/ML 1 ML VIAL IM PRN (02:25)
[2023-11-18] MEDS ORDERED: ACETAMINOPHEN TAB 325 MG TAB PO PRN (02:25)
[2023-11-18] MEDS ORDERED: haloperidoL 5 MG TAB PO PRN (02:25)
[2023-11-18 05:52] LABS: Amphetamine Screen,Urine Not Detected (NotDetected); Barbiturate Screen,Urine Not Detected (NotDetected); Benzodiazepines Screen,Urine Detected (NotDetected); Cocaine Screen,Urine Not Detected (NotDetected); Methadone Screen, Urine Not Detected (NotDetected); Opiate Screen,Urine Not Detected (NotDetected); Oxycodone Screen, Urine Not Detected (NotDetected); Phencyclidine Screen,Urine Not Detected (NotDetected); Tricyclic Antidepressant,Urine Not Detected (NotDetected); Urn Cannabinoid Scrn Detected (NotDetected)
[2023-11-18] MEDS ORDERED: ALBUTEROL HFA INHALER INHALATION PRN (09:18)
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
[2023-11-18] MEDS: LORazepam 1 MG TAB PO PRN (09:58)
[2023-11-18] MEDS: hydrOXYzine pamoate 25 MG CAP PO PRN ×2 (09:58→20:12)
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
[2023-11-18] MEDS ORDERED: ALBUTEROL INHALER 60 PUFF/8 GM INHALER (MHU) INHALATION PRN (14:02)
[2023-11-18] MEDS ORDERED: CYCLOBENZAPRINE 10 MG TAB PO PRN (14:09)
[2023-11-18] MEDS: amLODIPine 10 MG TAB PO SCH ×2 (14:54→15:02)
[2023-11-18] MEDS: IBUPROFEN 600 MG TAB PO PRN (14:55)
[2023-11-18] MEDS: lisinopriL 20 MG TAB PO SCH (14:55)
[2023-11-18] MEDS: hydrALAZINE HCL 50 MG TAB PO SCH (14:55)
[2023-11-18] MEDS: CHOLECALCIFEROL 25 MCG (1000 IU) TABLET PO SCH (14:59)
[2023-11-18] MEDS: FLUoxetine HCL 20 MG CAP PO SCH (15:00)
--- NOTE | 2023-11-18 15:14 | US ---
EXAMINATION TYPE: US groin RT DATE OF EXAM: 11/18/2023 COMPARISON: NONE CLINICAL INDICATION: Male, 38 years old with history of Ultrasound right groin for direct/indirect he rnia; Pt states feeling a "pop" and pain right lower ABD pain, and right groin TECHNIQUE: Right lower ABD and right groin FINDINGS: In area of pt's pain with valsalva maneuver there is a 1.4 cm "bulge" ?bowel herniation- however, no sonographic evidence of an abdominal wall break is not visualized Abdominal Wall defect is not identified. IMPRESSION: 1. There may be some bulging without peristalsis the right.. Inguinal hernia is not excluded. Associa akosua abdominal wall defect however is not identified.
[2023-11-18] MEDS ORDERED: SYMBICORT 160-4.5 MCG INHALER INHALATION SCH (20:00)
[2023-11-18] MEDS: busPIRone HCl 10 MG TAB PO SCH (20:11)
[2023-11-18] MEDS: FLUoxetine HCL 10 MG CAP PO SCH (20:11)
[2023-11-18] MEDS: CYCLOBENZAPRINE 10 MG TAB PO PRN (20:11)
[2023-11-18] MEDS: FLUTICASONE 50MCG/SPRAY NASAL 16GM EA NOSTRIL SCH (20:20)
[2023-11-18] MEDS: SYMBICORT 80-4.5 MCG INHALER (MHU) INHALATION SCH (20:21)
[2023-11-18] MEDS ORDERED: FLUoxetine HCL 10 MG CAP PO SCH (21:00)
[2023-11-18] MEDS ORDERED: NON FORMULARY DRUG (Hydralazine Hcl [Apresoline] 100 MG Tablet) PO SCH (21:00)
[2023-11-18] MEDS ORDERED: hydrALAZINE HCL 50 MG TAB PO SCH (21:00)
[2023-11-18] MEDS ORDERED: NON FORMULARY DRUG (Buspirone Hcl [Buspar] 30 MG Tablet) PO SCH (21:00)
[2023-11-19] MEDS: hydrALAZINE HCL 50 MG TAB PO STA (01:05)
[2023-11-19] MEDS: METOPROLOL TARTRATE 50 MG TAB PO SCH (08:13)
[2023-11-19] MEDS: hydrALAZINE HCL 50 MG TAB PO SCH (08:13)
[2023-11-19] MEDS ORDERED: FLUoxetine HCL 20 MG CAP PO SCH (09:00)
[2023-11-19] MEDS ORDERED: CHOLECALCIFEROL 25 MCG (1000 IU) TABLET PO SCH (09:00)
[2023-11-19] MEDS ORDERED: lisinopriL 20 MG TAB PO SCH (09:00)
[2023-11-19] MEDS ORDERED: amLODIPine 10 MG TAB PO SCH (09:00)
[2023-11-19] MEDS: ARIPiprazole 2 MG TAB PO SCH (10:37)
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
[2023-11-19 14:06] LABS: Appearance,Urine Clear (Clear); Bilirubin,Urine Negative (Negative); Blood,Urine Negative (Negative); Color,Urine Light Yellow; Glucose,Urine (UA) Negative (Negative); Ketones,Urine Negative (Negative); Leukocyte Esterase,Urine Negative (Negative); Nitrite,Urine Negative (Negative); PH, Urine 5.5 (5.0-8.0); Protein,Urine Trace (Negative); Specific Gravity,Urine 1.019 (1.001-1.035); Urobilinogen,Urine <2.0 mg/dL (<2.0)
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
[2023-11-19 17:15] LABS: Basophils # (A) 0.1 k/uL (0-0.2); Basophils % (A) 1 %; Eosinophils # (A) 0.2 k/uL (0-0.7); Eosinophils % (A) 1 %; HCT 52.1 % (39.0-53.0); HGB 16.6 gm/dL (13.0-17.5); Lymphocytes # (A) 3.5 k/uL (1.0-4.8); Lymphocytes % (A) 21 %; MCH 28.6 pg (25.0-35.0); MCHC 31.9 g/dL (31.0-37.0); MCV 89.7 fL (80.0-100.0); Mean Platelet Volume 7.5; Monocytes # (A) 1.5 k/uL (0-1.0); Monocytes % (A) 9 %; Neutrophils % (A) 65 %; Platelet Count 365 k/uL (150-450); RBC 5.81 m/uL (4.30-5.90); RDW 13.4 % (11.5-15.5); WBC 16.8 k/uL (3.8-10.6)
[2023-11-19 17:31] LABS: ALT 53 U/L (4-49); AST 33 U/L (17-59); African American GFR (CKD) >90 (>60 ml/min/1.73 sqM); Albumin 4.5 g/dL (3.5-5.0); Alkaline Phosphatase 77 U/L (38-126); Anion Gap 11 mmol/L; Blood Urea Nitrogen 16 mg/dL (9-20); Calcium 10.2 mg/dL (8.4-10.2); Carbon Dioxide 22 mmol/L (22-30); Chloride 110 mmol/L (98-107); Glucose 84 mg/dL (74-99); Non-African American GFR(CKD) >90 (>60 ml/min/1.73 sqM); Potassium 4.2 mmol/L (3.5-5.1); Sodium 143 mmol/L (137-145); Total Bilirubin 0.9 mg/dL (0.2-1.3); Total Protein 7.8 g/dL (6.3-8.2)
[2023-11-19] MEDS: traZODone HCL 50 MG TAB PO PRN (21:02)
[2023-11-19] MEDS: MAG HYDROX/AL HYDROX/SIMETH 355 ML BOTTLE PO PRN (22:31)
[2023-11-20 02:55] LABS: Chol/HDL Ratio 5.14 Ratio; LDL Cholesterol,Calculated 92.9 mg/dL (0.0-131.0)
[2023-11-20 07:12] VITALS: TEMP 96.6
[2023-11-20 10:02] VITALS: BP 128/82; PULSE 106; RESP 20
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
== END 2023-11-20 14:12 | disposition home or self-care (01) | DRG 755 ==
LOC: EC 22:28 → 3MHU 11-18 02:09
PROVIDERS: ADMIT Psychiatry & Neurology Psychiatry; ATTEND Psychiatry & Neurology Psychiatry
DX: F43.25 Adjustment disorder with mixed disturbance of emotions and conduct (principal); R45.851 Suicidal ideations; I11.9 Hypertensive heart disease without heart failure; F32.4 Major depressive disorder, single episode, in partial remission; F12.10 Cannabis abuse, uncomplicated; E66.01 Morbid (severe) obesity due to excess calories; Z68.41 Body mass index [BMI] 40.0-44.9, adult; J44.89 Other specified chronic obstructive pulmonary disease; I08.1 Rheumatic disorders of both mitral and tricuspid valves; Z11.52 Encounter for screening for COVID-19; Z28.310 Unvaccinated for COVID-19; F43.0 Acute stress reaction; F41.9 Anxiety disorder, unspecified; F90.9 Attention-deficit hyperactivity disorder, unspecified type; G47.30 Sleep apnea, unspecified; G89.29 Other chronic pain; M54.9 Dorsalgia, unspecified; R48.0 Dyslexia and alexia; K40.90 Unilateral inguinal hernia, without obstruction or gangrene, not specified as recurrent; K21.9 Gastro-esophageal reflux disease without esophagitis; M19.90 Unspecified osteoarthritis, unspecified site; Z79.51 Long term (current) use of inhaled steroids; Z79.2 Long term (current) use of antibiotics; Z79.899 Other long term (current) drug therapy; Z56.0 Unemployment, unspecified; Z59.6 Low income; Z55.5 Less than a high school diploma; Z62.820 Parent-biological child conflict; Z62.810 Personal history of physical and sexual abuse in childhood; Z87.891 Personal history of nicotine dependence; Z98.1 Arthrodesis status; Z86.14 Personal history of Methicillin resistant Staphylococcus aureus infection
CPT/HCPCS: 80053; 80061; 80306; 81003; 82075; 83036; 84443; 85025; 87636; 99285

== ENCOUNTER 2024-11-15 09:35 | Emergency (ER) | payer OTHER ==
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
[2024-11-15 10:01] LABS: Basophils # (A) 0.08 10*3/uL (0.00-0.10); Basophils % (A) 0.8 %; Eosinophils # (A) 0.29 10*3/uL (0.04-0.35); HCT 45.6 % (39.6-50.0); Lymphocytes # (A) 2.17 10*3/uL (0.90-5.00); Lymphocytes % (A) 22.7 %; MCH 28.5 pg (27.0-32.0); MCHC 32.9 g/dL (32.0-37.0); MCV 86.7 fL (80.0-97.0); Mean Platelet Volume 9.8 fL (9.5-12.2); Monocytes # (A) 1.23 10*3/uL (0.20-1.00); Monocytes % (A) 12.9 %; Neutrophils # (A) 5.74 10*3/uL (1.80-7.70); Platelet Count 269 10*3/uL (140-440); RBC 5.26 10*6/uL (4.40-5.60); RDW 14.3 % (11.5-14.5); WBC 9.57 10*3/uL (4.50-10.00)
[2024-11-15] MEDS: KETOROLAC 15 MG/ML 1 ML VIAL IVP STA (10:01)
[2024-11-15] MEDS: SODIUM CHLORIDE 0.9% 1,000 ML IV ONE (10:01)
[2024-11-15 10:18] LABS: ALT 45 U/L (4-49); AST 27 U/L (17-59); African American GFR (CKD) >90 (>60 ml/min/1.73 sqM); Albumin 4.2 g/dL (3.5-5.0); Alkaline Phosphatase 64 U/L (38-126); Amylase 62 U/L (30-110); Anion Gap 6 mmol/L; Blood Urea Nitrogen 11 mg/dL (9-20); Calcium 9.9 mg/dL (8.4-10.2); Carbon Dioxide 31 mmol/L (22-30); Chloride 106 mmol/L (98-107); Glucose 102 mg/dL (74-99); Lipase 415 U/L (23-300); Non-African American GFR(CKD) >90 (>60 ml/min/1.73 sqM); Potassium 4.1 mmol/L (3.5-5.1); Sodium 143 mmol/L (137-145); Total Bilirubin 0.6 mg/dL (0.2-1.3); Total Protein 7.4 g/dL (6.3-8.2)
--- NOTE | 2024-11-15 11:02 | CT ---
EXAMINATION TYPE: CT abdomen pelvis w con DATE OF EXAM: 11/15/2024 COMPARISON: Prior CT April 04, 2014 CLINICAL INDICATION: Male, 39 years old with history of left side pain, left sided abdominal pain x 1 day, TECHNIQUE: CT scan of the abdomen and pelvis is performed with IV Contrast, patient injected with 100 ml mL of I sovue 300., (none if empty) Oral contrast used: without Oral Contrast (none if empty) CT DLP: 3225.9 mGycm, Automated exposure control for dose reduction was used. FINDINGS: LUNG BASES: A few tiny nodules in the left lower lobe are redemonstrated. LIVER/GB: Liver is heterogeneously hypodense consistent with diffuse fatty infiltrative hepatocellula r disease. PANCREAS: No significant abnormality is seen. SPLEEN: No significant abnormality is seen. ADRENALS: No significant abnormality is seen. KIDNEYS: Symmetric cortical medullary uptake and excretion without hydronephrosis seen bilaterally. BOWEL: No significant abnormality is seen. PROSTATE/SEMINAL VESICLES: No gross abnormality seen. LYMPH NODES: No greater than 1cm abdominal or pelvic lymph nodes are appreciated. OSSEOUS STRUCTURES: Postsurgical change L5-S1 level is now seen. OTHER: Small fat-containing right greater than left inguinal hernias are now present.. IMPRESSION: No significant acute finding is seen to account for patient's clinical symptoms of left- sided pain. [facility], , 11/15/2024 11:00 AM
[2024-11-15 11:17] VITALS: BP 172/99; PULSE 87; RESP 18; TEMP 98.2
== END 2024-11-15 11:17 | disposition home or self-care (01) ==
LOC: EC 09:35
DX: S39.011A Strain of muscle, fascia and tendon of abdomen, initial encounter (principal); Z87.891 Personal history of nicotine dependence; X58.XXXA Exposure to other specified factors, initial encounter
CPT/HCPCS: 36415; 80053; 82150; 83690; 85025; 74177; 99284; 96374; 96361; J1885; Q9967